=== PATIENT | male | born 1955 | race Two or more races ===

== ENCOUNTER 2018-10-29 13:05 | Inpatient (IN) | payer OTHER ==
[2018-10-29] VITALS (7 sets, daily range): BP systolic 138–157; BP diastolic 60–90
[~2018-10-29] VITALS: Ht 165.1 cm; Wt 77.1 kg
--- NOTE | 2018-10-29 13:09 | NUR ---
ED Nurse Note: Pt presented to ED via ambulance from [facility], pt was bleeding from permacath earlier but bleeding has since stopped, unknown amount of blood lost, pt has a hx of anemia. Pt denies pain, wolof speaking, A&O to self, awake but not answering quesions. Pt has 2 AV shunts on left arm. Presenting with bradycardia.
--- NOTE | 2018-10-29 13:16 | Emergency Room Report ---
History of Present Illness General Chief Complaint: General Complaint Source: EMS Present Illness HPI Patient is sent from a senior living facility. He has bleeding from his permacath in his right chest. He's a dialysis patient. He also has a fistula on his left arm. The EMS company is uncertain how much blood he's lost by the Vascath. Patient has a history of anemia. The patient is unable to answer questions at this time. Unknown when last dialysis was her with dialysis schedule is supposed to be. History of diabetes History of hypertension Allergies: Coded Allergies: No Known Allergies (Unverified , 10/29/18) Patient History Limited by: medical condition Past Medical History: see triage record, old chart reviewed Past Surgical History: other - fistula L upper arm Social History Narrative Reviewed Nursing Documentation: PMH: Agreed; PSxH: Agreed Nursing Documentation-PMH Hx Hypertension: Yes Hx Asthma: No - ESRD Hx Diabetes: Yes Review of Systems All Other Systems: limited Physical Exam Vital Signs Date Time Temp Pulse Resp B/P (MAP) Pulse Ox O2 Delivery O2 Flow Rate FiO2 10/29/18 12:49 96.6 48 20 98 Nasal Cannula 3.0 Sp02 EP Interpretation: reviewed, normal General Appearance: no apparent distress, lethargic, Chronically Ill Head: normocephalic Eyes: bilateral eye PERRL, bilateral eye conjunctivae pale ENT: moist mucus membranes Neck: supple Respiratory: decreased breath sounds, rales, other - vascath R chest with old blood, no active bleeding Cardiovascular #1: bradycardia, edema - Anasarca with 3+ pitting edema lower extremities Cardiovascular #2: 2+ radial (R) Gastrointestinal: normal inspection, normal bowel sounds, non tender, no mass, non-distended Musculoskeletal: back normal, normal range of motion Neurologic: responsive, sensory intact, motor weakness - Diffuse, other - Slow responding and sometimes not responding at all Psychiatric: depressed affect Skin: warm/dry, pallor Procedures Critical Care Time Critical Care Time Total Critical Care Time: 30 min bedside evaluation and treatment excludes procedures (EKG). Reason for critical care: Renal failure, anemia, pulmonary edema, hyperkalemia Possible complications: hypotension, hypertension, IN, shock, arrhythmias, metabolic acidosis, end organ damage, respiratory failure. Interventions: Blood transfusion, arranging for dialysis, treatment of hyperkalemia repeat evaluations Course: Patient presents with bleeding from vascular access site right chest. No active bleeding at this time. The patient is pale. He is bradycardic. Evaluation with profound anemia. Blood set up to be transfused. Discussed with patient risks of transfusion. Chest x-ray with pulmonary edema. Discussed with senior living facility to determine private physician. Discussion with private doctor about need for dialysis. EKG with peaked T waves and potassium high. Calcium chloride and Kayexalate administered. Patient somewhat more responsive. Elevated troponin felt to be secondary to renal failure as opposed to true cardiac injury. Blood begun. Patient transferred to monitored bed. Consultations: nursing staff, EMS, SNF, blood bank, PMD Performed by: Dr. Mclaughlin Tolerated well condition = serious Medical Decision Making Diagnostic Impression: Primary Impression: Profound anemia Qualified Codes: D64.9 - Anemia, unspecified Additional Impressions: Pulmonary edema Qualified Codes: J81.0 - Acute pulmonary edema ESRD (end stage renal disease) on dialysis Elevated troponin Hyperkalemia Anasarca associated with disorder of kidney Encephalopathy ER Course Patient presents with bleeding from vascular access right chest. Differential includes acute bleeding, anemia, renal failure with electrolyte abnormalities, coagulopathy amongst others. Evaluation will be with EKG, chest x-ray and labs. Type and Rh will be sent. The patient is heme-negative from GI tract. EKG with peaked T waves, first-degree AV block and bradycardia. Chest x-ray with pulmonary edema. Labs with profound anemia. Potassium high. End-stage renal disease. Elevated troponin minimally. Elevated BNP Ordered blood. Discussed with patient. K high. Ordered calcium and Kayexelate. + troponin assessed by me to be troponin leak. As bleeding and not felt to be myocardial ischemia, aspirin not given. Discussed with Dr. Trujillo that patient needs dialysis. Admit to telemetry. Patient in no respiratory distress. Occasional coughing episodes. No productive sputum. Laboratory Tests Test 10/29/18 13:15 White Blood Count 4.0 K/UL (4.8-10.8) L Red Blood Count 2.07 M/UL (4.70-6.10) L Hemoglobin 6.5 G/DL (14.2-18.0) *L Hematocrit 20.2 % (42.0-52.0) L Mean Corpuscular Volume 98 FL (80-99) Mean Corpuscular Hemoglobin 31.3 PG (27.0-31.0) H Mean Corpuscular Hemoglobin Concent 32.1 G/DL (32.0-36.0) Red Cell Distribution Width 15.7 % (11.6-14.8) H Platelet Count 179 K/UL (150-450) Mean Platelet Volume 7.2 FL (6.5-10.1) Neutrophils (%) (Auto) % (45.0-75.0) Lymphocytes (%) (Auto) % (20.0-45.0) Monocytes (%) (Auto) % (1.0-10.0) Eosinophils (%) (Auto) % (0.0-3.0) Basophils (%) (Auto) % (0.0-2.0) Differential Total Cells Counted 100 Neutrophils % (Manual) 66 % (45-75) Lymphocytes % (Manual) 17 % (20-45) L Monocytes % (Manual) 10 % (1-10) Eosinophils % (Manual) 6 % (0-3) H Basophils % (Manual) 1 % (0-2) Band Neutrophils 0 % (0-8) Platelet Estimate Adequate Platelet Morphology Normal Hypochromasia 2+ Anisocytosis 1+ Prothrombin Time 12.3 SEC (9.30-11.50) H Prothrombin Time INR 1.2 (0.9-1.1) H PTT 32 SEC (23-33) Sodium Level 135 MMOL/L (136-145) L Potassium Level 6.7 MMOL/L (3.5-5.1) *H Chloride Level 101 MMOL/L (98-107) Carbon Dioxide Level 23 MMOL/L (21-32) Anion Gap 11 mmol/L (5-15) Blood Urea Nitrogen 60 mg/dL (7-18) H Creatinine 7.9 MG/DL (0.55-1.30) H Estimate Glomerular Filtration Rate 6.9 mL/min (>60) Glucose Level 142 MG/DL (74-106) H Calcium Level 8.4 MG/DL (8.5-10.1) L Total Bilirubin 0.5 MG/DL (0.2-1.0) Aspartate Amino Transferase (AST) 23 U/L (15-37) Alanine Aminotransferase (ALT) 22 U/L (12-78) Alkaline Phosphatase 339 U/L (46-116) H Total Creatine Kinase 87 U/L (26-308) Troponin I 0.058 ng/mL (0.000-0.056) Pro-B-Type Natriuretic Peptide 49324 pg/mL (0-125) H Total Protein 7.0 G/DL (6.4-8.2) Albumin 2.8 G/DL (3.4-5.0) L Globulin 4.2 g/dL Albumin/Globulin Ratio 0.7 (1.0-2.7) L Lipase 95 U/L (73-393) EKG Diagnostic Results Rate: bradycardiac - 52 Rhythm: NSR ST Segments: other - 1st degree AV block, slight peaked T waves Rhythm Strip Diag. Results Rhythm: no PVC's, no ectopy, other - ping Chest X-Ray Diagnostic Results Chest X-Ray Diagnostic Results : Chest X-Ray Ordered: Yes # of Views/Limited/Complete: 1 View Indication: Other EP Interpretation: Yes Interpretation: no effusion, no pneumothorax, other - CHF and vas catj Impression: Other Electronically Signed by: Electronically signed by David Mclaughlin MD Last Vital Signs Date Time Temp Pulse Resp B/P (MAP) Pulse Ox O2 Delivery O2 Flow Rate FiO2 10/29/18 16:54 52 10/29/18 16:49 Room Air 10/29/18 16:43 98.0 20 148/60 (89) 98 10/29/18 12:49 3.0 Status: improved Disposition: ADMITTED INPATIENT Condition: Serious David Mclaughlin MD October 29, 2018 13:16
--- NOTE | 2018-10-29 13:24 | NUR ---
ED Nurse Note: Collected blood specimen and then sent to lab.
--- NOTE | 2018-10-29 13:26 | NUR ---
ED Nurse Note: corrosion technician at the bed side for CXR.
[2018-10-29] MEDS ORDERED: DOXAZOSIN MESYLA2 MG ORAL (13:43)
[2018-10-29] MEDS ORDERED: NORVASC5 MG ORAL (13:43)
[2018-10-29] MEDS ORDERED: COREG12.5 MG ORAL (13:43)
[2018-10-29] MEDS ORDERED: RENVELA800 MG ORAL (13:43)
[2018-10-29] MEDS ORDERED: LOSARTAN POTAS100 MG ORAL (13:43)
[2018-10-29 13:44] LABS: HEMATOCRIT 20.2 % (42.0-52.0); MEAN CORPUSCULAR VOLUME 98 FL (80-99); PLATELET COUNT 179 K/UL (150-450); RED BLOOD COUNT 2.07 M/UL (4.70-6.10); RED CELL DISTRIBUTION WIDTH 15.7 % (11.6-14.8)
[2018-10-29 13:45] LABS: HEMOGLOBIN 6.5 G/DL (14.2-18.0)
[2018-10-29 13:54] LABS: INR 1.2 (0.9-1.1)
--- NOTE | 2018-10-29 14:07 | Diagnostic Imaging Report ---
Indication: Pain chest Technique: One view of the chest Comparison: none Findings: There is bilateral interstitial edema. Pleural spaces are grossly clear. The heart is borderline enlarged. There is a right jugular tunneled dialysis catheter. Impression: Hepatomegaly Bilateral interstitial edema
[2018-10-29 14:12] LABS: ALANINE AMINOTRANSFERASE 22 U/L (12-78); ALBUMIN 2.8 G/DL (3.4-5.0); ALBUMIN/GLOBULIN RATIO 0.7 (1.0-2.7); ALKALINE PHOSPHATASE 339 U/L (46-116); ANION GAP 11 mmol/L (5-15); ASPARTATE AMINO TRANSFERASE 23 U/L (15-37); BILIRUBIN,TOTAL 0.5 MG/DL (0.2-1.0); BLOOD UREA NITROGEN 60 mg/dL (7-18); CALCIUM 8.4 MG/DL (8.5-10.1); CARBON DIOXIDE 23 MMOL/L (21-32); CHLORIDE 101 MMOL/L (98-107); CREATINE KINASE 87 U/L (26-308); CREATININE 7.9 MG/DL (0.55-1.30); SODIUM 135 MMOL/L (136-145)
[2018-10-29 14:15] LABS: POTASSIUM 6.7 MMOL/L (3.5-5.1)
[2018-10-29] MEDS ORDERED: Calcium Gluconate 1gm/10ml vial IVP ONE (14:30)
[2018-10-29] MEDS ORDERED: Sodium Polystyrene Sulfonate 15gm Powder ORAL ONE (14:30)
--- NOTE | 2018-10-29 15:06 | History and Physical ---
History of Present Illness General Date patient seen: October 29, 2018 Reason for Hospitalization: General Complaint Present Illness HPI 63 y/o male sent for hyperkalemia, refusing hd and agitation pt also had apparent bleeding from permacath and noted to have drop of h/h Pt. is a poor historian, refusing Iv Allergies: Coded Allergies: No Known Allergies (Unverified , 10/29/18) Medication History Scheduled Amlodipine Besylate (Norvasc), 5 MG ORAL DAILY, (Reported) Carvedilol (Coreg), 12.5 MG ORAL EVERY 12 HOURS, (Reported) Doxazosin Mesylate (Doxazosin Mesylate), 1 MG ORAL DAILY, (Reported) Losartan Potassium (Losartan Potassium), 50 MG ORAL DAILY, (Reported) Sevelamer Carbonate (Renvela), 800 MG ORAL THREE TIMES A DAY, (Reported) Patient History Healthcare decision maker Resuscitation status Advanced Directive on File Past Medical/Surgical History Past Medical/Surgical History: (1) Pulmonary edema (2) Profound anemia (3) ESRD (end stage renal disease) on dialysis Review of Systems Constitutional: Reports: sweats, malaise Eye: Denies: no symptoms, see HPI, eye pain, blurred vision, tearing, double vision, nose pain, nose congestion, acuity changes, discharge, other ENT: Denies: no symptoms, see HPI, ear pain, ear discharge, nose pain, nose congestion, throat pain, throat swelling, mouth pain, hearing loss, nasal discharge, other Respiratory: Reports: orthopnea, shortness of breath Gastrointestinal: Reports: nausea, melena Skin: Denies: no symptoms, see HPI, rash, change in color, change in hair/nails , dryness, lesions, other Psychiatric: Denies: no symptoms, see HPI, prior hx, anxiety, depressed feelings, emotional problems, SI, HI, hallucinations, other Endocrine: Denies: no symptoms, see HPI, excessive sweating, flushing, intolerance to temperature, increased thirst, increased urine, unexplained weight loss, other Hematologic/Lymphatic: Denies: no symptoms, see HPI, anemia, blood clots, easy bleeding, easy bruising, swollen glands, diathesis, other Physical Exam General Appearance: confused HEENT: normocephalic, atraumatic, mucous membranes moist, EOMI Neck: supple Respiratory/Chest: accessory muscle use, crackles/rales Cardiovascular/Chest: normal rate Abdomen: normal bowel sounds Last 24 Hour Vital Signs Date Time Temp Pulse Resp B/P (MAP) Pulse Ox O2 Delivery O2 Flow Rate FiO2 10/29/18 14:01 51 12 Room Air 10/29/18 13:15 97.6 51 12 138/78 Room Air 10/29/18 12:49 96.6 48 20 98 Nasal Cannula 3.0 Laboratory Tests Test 10/29/18 13:15 White Blood Count 4.0 K/UL (4.8-10.8) L Red Blood Count 2.07 M/UL (4.70-6.10) L Hemoglobin 6.5 G/DL (14.2-18.0) *L Hematocrit 20.2 % (42.0-52.0) L Mean Corpuscular Volume 98 FL (80-99) Mean Corpuscular Hemoglobin 31.3 PG (27.0-31.0) H Mean Corpuscular Hemoglobin Concent 32.1 G/DL (32.0-36.0) Red Cell Distribution Width 15.7 % (11.6-14.8) H Platelet Count 179 K/UL (150-450) Mean Platelet Volume 7.2 FL (6.5-10.1) Neutrophils (%) (Auto) % (45.0-75.0) Lymphocytes (%) (Auto) % (20.0-45.0) Monocytes (%) (Auto) % (1.0-10.0) Eosinophils (%) (Auto) % (0.0-3.0) Basophils (%) (Auto) % (0.0-2.0) Differential Total Cells Counted 100 Neutrophils % (Manual) 66 % (45-75) Lymphocytes % (Manual) 17 % (20-45) L Monocytes % (Manual) 10 % (1-10) Eosinophils % (Manual) 6 % (0-3) H Basophils % (Manual) 1 % (0-2) Band Neutrophils 0 % (0-8) Platelet Estimate Adequate Platelet Morphology Normal Hypochromasia 2+ Anisocytosis 1+ Prothrombin Time 12.3 SEC (9.30-11.50) H Prothromb Time International Ratio 1.2 (0.9-1.1) H Activated Partial Thromboplast Time 32 SEC (23-33) Sodium Level 135 MMOL/L (136-145) L Potassium Level 6.7 MMOL/L (3.5-5.1) *H Chloride Level 101 MMOL/L (98-107) Carbon Dioxide Level 23 MMOL/L (21-32) Anion Gap 11 mmol/L (5-15) Blood Urea Nitrogen 60 mg/dL (7-18) H Creatinine 7.9 MG/DL (0.55-1.30) H Estimat Glomerular Filtration Rate 6.9 mL/min (>60) Glucose Level 142 MG/DL (74-106) H Calcium Level 8.4 MG/DL (8.5-10.1) L Total Bilirubin 0.5 MG/DL (0.2-1.0) Aspartate Amino Transf (AST/SGOT) 23 U/L (15-37) Alanine Aminotransferase (ALT/SGPT) 22 U/L (12-78) Alkaline Phosphatase 339 U/L (46-116) H Total Creatine Kinase 87 U/L (26-308) Troponin I 0.058 ng/mL (0.000-0.056) Pro-B-Type Natriuretic Peptide 68253 pg/mL (0-125) H Total Protein 7.0 G/DL (6.4-8.2) Albumin 2.8 G/DL (3.4-5.0) L Globulin 4.2 g/dL Albumin/Globulin Ratio 0.7 (1.0-2.7) L Lipase 95 U/L (73-393) Height (Feet): 5 Height (Inches): 5.00 Weight (Pounds): 170 Assessment/Plan Problem List: (1) Encephalopathy Assessment & Plan: - has psych d/o, await eval, restraints prn ICD Codes: G93.40 - Encephalopathy, unspecified SNOMED: 65419573 (2) Pulmonary edema Assessment & Plan: -try for- 2liter off with hd ICD Codes: J81.1 - Chronic pulmonary edema SNOMED: 39700445 Qualifiers: Qualified Codes: J81.0 - Acute pulmonary edema (3) Profound anemia Assessment & Plan: - gi eval -stool ob -ppi watch h/h -transfuse with hd -epogen ICD Codes: D64.9 - Anemia, unspecified SNOMED: 056848762 Qualifiers: Qualified Codes: D64.9 - Anemia, unspecified (4) Hyperkalemia Assessment & Plan: - low k bath with hd, Kayexalate, repeat h.h ICD Codes: E87.5 - Hyperkalemia SNOMED: 09915251, 815222155, 327183979 (5) ESRD (end stage renal disease) on dialysis Assessment & Plan: - watch volume -resume meds -adjust meds to lower crcl ICD Codes: N18.6 - End stage renal disease; Z99.2 - Dependence on renal dialysis SNOMED: 490322676 Status: not improved Neo Trujillo M.D. October 29, 2018 15:06
--- NOTE | 2018-10-29 15:55 | NUR ---
ED Nurse Note: Pt refused MRSA/VRE/CRE nasal swab.
--- NOTE | 2018-10-29 16:43 | NUR ---
ED Nurse Note: Pt had 2 BM's, small soft/semi-liquid stools.
--- NOTE | 2018-10-29 16:44 | NUR ---
ED Nurse Note: Pt transferred to Tele -, report given to TERESA Palm. PT VSS
--- NOTE | 2018-10-29 17:46 | NUR ---
NURSE NOTES: Pt awake alert,no distress. call light within reach. bed in lowest position, locked. sacral area intact, no active bleeding from right upper chest permacath (gauze covering catheter is saturated w blood), left forearm shunt. bilateral ankle edema. 1uprbc transfusing from er. rfa 20g intact.
--- NOTE | 2018-10-29 17:47 | NUR ---
NURSE NOTES: pt sb with 1degree hb, paged Dr Bautista, awaiting call back. pt asymptomatic. Addendum: 10/29/18 at 1927 by BRITTNY WEAVER RN DR BAUTISTA CALLED BACK PT IS AWARE THAT THERE IS NO ACTIVE BLEEDING ON RIGHT UPPER CHEST PERMACATH BUT THE GAUZE COVERING END OF CATHETER IS SATURATED W BLOOD. NO NEW ORDER. ALSO AWARE OF K LEVEL, PT DUE FOR HD TONIGHT.
--- NOTE | 2018-10-29 17:48 | NUR ---
NURSE NOTES: called [facility] for hd today to inform dialysis nurse
--- NOTE | 2018-10-29 19:20 | NUR ---
HAND-OFF: Report given to PAUL MOORE.
--- NOTE | 2018-10-29 19:25 | NUR ---
NURSE NOTES: Received report from TERESA Palm. Patient in bed awake showing no signs of acute distress. Respiration even and non labored. No Sob noted. IV patent and intact. Bed in lowest position. Bed alarm on, and wheels locked. Call light within reach. All needs attended and met. Will continue plan of care.
--- NOTE | 2018-10-29 19:45 | NUR ---
NURSE NOTES: Pt. refused to have the biotechnologist on him. Explained risk, benefits, and hospital protocol. AOx4. Pt. still refused. Pt. refused hemodialysis. Dr. perry made aware. New orders provided. Noted and carried out.
[2018-10-29] MEDS ORDERED: Sodium Polystyrene Sulfonate 15gm Powder ORAL SCH (20:00)
[2018-10-29] MEDS: Carvedilol 12.5mg tab ORAL SCH (20:41)
[2018-10-29] MEDS: Epoetin Alfa(ESRD on dialysis)10,000 unit/ml vial SUBQ SCH (20:58)
--- NOTE | 2018-10-30 01:46 | NUR ---
NURSE NOTES: Pt. is complaining of pain on right upper chest area. Called and left a message to Dr. Trujillo. Awaiting call back. BP 162/83, HR 55.
[2018-10-30 02:21] LABS: HEMOGLOBIN 7.7 G/DL (14.2-18.0); MEAN CORPUSCULAR VOLUME 95 FL (80-99); PLATELET COUNT 195 K/UL (150-450); RED BLOOD COUNT 2.42 M/UL (4.70-6.10); RED CELL DISTRIBUTION WIDTH 15.5 % (11.6-14.8); WHITE BLOOD COUNT 4.7 K/UL (4.8-10.8)
[2018-10-30 02:49] LABS: ANION GAP 10 mmol/L (5-15); BLOOD UREA NITROGEN 67 mg/dL (7-18); CALCIUM 8.6 MG/DL (8.5-10.1); CARBON DIOXIDE 24 MMOL/L (21-32); CHLORIDE 102 MMOL/L (98-107); CREATININE 8.6 MG/DL (0.55-1.30); SODIUM 136 MMOL/L (136-145)
[2018-10-30 02:51] LABS: POTASSIUM 6.7 MMOL/L (3.5-5.1)
--- NOTE | 2018-10-30 07:35 | NUR ---
HAND-OFF: Report given to TERESA Leigh.
--- NOTE | 2018-10-30 07:38 | NUR ---
NURSE NOTES: Received report from Adelita/RN, Patient is awake, All dressed up, eating breakfast at bedside. No acute distress noted. Patient refused heart monitor at this time. Bed in low position, Call light within reach. Will continue plan of care.
[2018-10-30 08:00] VITALS: BP 186/86
[2018-10-30] MEDS: Losartan 50mg tab ORAL SCH (08:43)
[2018-10-30] MEDS: Carvedilol 12.5mg tab ORAL SCH ×2 (08:44→21:32)
--- NOTE | 2018-10-30 10:00 | NUR ---
NURSE NOTES: Patient refused to put Heart monitor.
--- NOTE | 2018-10-30 10:10 | General Progress Note ---
Assessment/Plan Problem List: (1) ESRD (end stage renal disease) on dialysis ICD Codes: N18.6 - End stage renal disease; Z99.2 - Dependence on renal dialysis SNOMED: 796981942 (2) Profound anemia ICD Codes: D64.9 - Anemia, unspecified SNOMED: 999058417 Qualifiers: Qualified Codes: D64.9 - Anemia, unspecified Assessment/Plan: anemia from combination of ESRD and perma cath bleeding no active GIB check stool ob GI procedures if needed monitor H&H Subjective ROS Limited/Unobtainable: Yes Allergies: Coded Allergies: No Known Allergies (Unverified , 10/29/18) Objective Last 24 Hour Vital Signs Date Time Temp Pulse Resp B/P (MAP) Pulse Ox O2 Delivery O2 Flow Rate FiO2 10/30/18 08:44 57 186/86 10/30/18 08:44 57 186/86 10/30/18 08:43 186/86 10/30/18 08:00 97.8 57 18 186/86 (119) 100 10/30/18 01:38 55 10/29/18 21:00 Room Air 10/29/18 20:41 53 157/85 10/29/18 20:00 52 18 157/85 (109) 97 10/29/18 16:54 52 10/29/18 16:49 Room Air 10/29/18 16:43 98.0 54 20 148/60 (89) 98 10/29/18 16:40 97.6 80 18 153/69 100 Room Air 10/29/18 15:55 97.6 80 18 153/69 100 Room Air 10/29/18 15:45 58 12 146/62 97 Room Air 10/29/18 15:40 97.6 69 12 141/66 100 Room Air 10/29/18 15:40 97.6 86 13 141/66 100 Room Air 10/29/18 15:35 97.6 63 12 10/29/18 14:15 97.4 54 12 145/90 100 Room Air 10/29/18 14:01 51 12 Room Air 10/29/18 13:15 97.6 51 12 138/78 Room Air 10/29/18 12:49 96.6 48 20 98 Nasal Cannula 3.0 Intake and Output 10/29/18 10/30/18 19:00 07:00 Intake Total 200 ml 240 ml Balance 200 ml 240 ml Intake Oral 200 ml 240 ml # Voids 1 # Bowel Movements 1 Laboratory Tests 10/29/18 13:15: White Blood Count 4.0L, Red Blood Count 2.07L, Hemoglobin 6.5*L, Hematocrit 20.2L, Mean Corpuscular Volume 98, Mean Corpuscular Hemoglobin 31.3H, Mean Corpuscular Hemoglobin Concent 32.1, Red Cell Distribution Width 15.7H, Platelet Count 179, Mean Platelet Volume 7.2, Neutrophils (%) (Auto) , Lymphocytes (%) (Auto) , Monocytes (%) (Auto) , Eosinophils (%) (Auto) , Basophils (%) (Auto) , Differential Total Cells Counted 100, Neutrophils % ( Manual) 66, Lymphocytes % (Manual) 17L, Monocytes % (Manual) 10, Eosinophils % ( Manual) 6H, Basophils % (Manual) 1, Band Neutrophils 0, Platelet Estimate Adequate, Platelet Morphology Normal, Hypochromasia 2+, Anisocytosis 1+, Prothrombin Time 12.3H, Prothromb Time International Ratio 1.2H, Activated Partial Thromboplast Time 32, Sodium Level 135L, Potassium Level 6.7*H, Chloride Level 101, Carbon Dioxide Level 23, Anion Gap 11, Blood Urea Nitrogen 60H, Creatinine 7.9H, Estimat Glomerular Filtration Rate 6.9, Glucose Level 142H , Calcium Level 8.4L, Total Bilirubin 0.5, Aspartate Amino Transf (AST/SGOT) 23 , Alanine Aminotransferase (ALT/SGPT) 22, Alkaline Phosphatase 339H, Total Creatine Kinase 87, Troponin I 0.058H, Pro-B-Type Natriuretic Peptide 37284L, Total Protein 7.0, Albumin 2.8L, Globulin 4.2, Albumin/Globulin Ratio 0.7L, Lipase 95 10/30/18 02:05: White Blood Count 4.7L, Red Blood Count 2.42L, Hemoglobin 7.7L, Hematocrit 23.0L , Mean Corpuscular Volume 95, Mean Corpuscular Hemoglobin 31.9H, Mean Corpuscular Hemoglobin Concent 33.6, Red Cell Distribution Width 15.5H, Platelet Count 195, Mean Platelet Volume 6.3L, Neutrophils (%) (Auto) , Lymphocytes (%) (Auto) , Monocytes (%) (Auto) , Eosinophils (%) (Auto) , Basophils (%) (Auto) , Differential Total Cells Counted 100, Neutrophils % ( Manual) 72, Lymphocytes % (Manual) 9L, Monocytes % (Manual) 15H, Eosinophils % ( Manual) 4H, Basophils % (Manual) 0, Band Neutrophils 0, Platelet Estimate Adequate, Platelet Morphology Normal, Anisocytosis 1+, Sodium Level 136, Potassium Level 6.7*H, Chloride Level 102, Carbon Dioxide Level 24, Anion Gap 10 , Blood Urea Nitrogen 67H, Creatinine 8.6H, Estimat Glomerular Filtration Rate 6.3, Glucose Level 115H, Calcium Level 8.6, Magnesium Level 2.4, Thyroid Stimulating Hormone (TSH) 22.825H Height (Feet): 5 Height (Inches): 5.00 Weight (Pounds): 170 General Appearance: alert EENT: normal ENT inspection Neck: supple Cardiovascular: normal rate Respiratory/Chest: decreased breath sounds Abdomen: normal bowel sounds, non tender, soft Extremities: non-tender Shantanu Burch MD October 30, 2018 10:10
[2018-10-30 12:00] VITALS: BP 192/82
--- NOTE | 2018-10-30 14:34 | NUR ---
CASE MANAGEMENT: REVIEW 63Y/M PAUL FROM [facility] CC: BLEEDING FROM PERMA-CATH SI: ESRD ON HD . ANEMIA T 96.6 HR 48 RR 20 BP 145/90 SAT 98% NC/3L WBC 4.0 H/H 6.5/20.2 NA 135 K 6.7 BUN 60 CR 7.9 IS: KAYEXALATE CALCIUM GLUCONATE IV X1 1 UNIT PRBC'S PATIENT ADMITTED TO TELEMETRY UNIT 10/29/2018 DCP: PATIENT IS FROM [facility]
--- NOTE | 2018-10-30 15:30 | NUR ---
Patient blood pressure is 187/95, Dr. Trujillo is aware and placed an order and carried out.
[2018-10-30 16:00] VITALS: BP 148/91
--- NOTE | 2018-10-30 18:05 | Nephrology Progress Note ---
Assessment/Plan Problem List: (1) Anemia Assessment: - GI eval noted -monitor h/h -s/p epogen (2) Encephalopathy Assessment: - has psych d/o, await eval, restraints prn (3) Pulmonary edema Assessment: - s/p - 2liter off with hd (4) Hyperkalemia Assessment: - treated with hd, low K bath (5) ESRD (end stage renal disease) on dialysis Assessment: - s/p hd, adjust meds, watch volume status Subjective ROS Limited/Unobtainable: Yes Subjective pt. seen and examined d/w rn s/p hd after refusing yesterday needs restraint, confused bp occ high psych eval called gi eval appreciated, no apparent blood loss. Objective Objective Last 24 Hour Vital Signs Date Time Temp Pulse Resp B/P (MAP) Pulse Ox O2 Delivery O2 Flow Rate FiO2 10/30/18 16:37 192/82 10/30/18 16:00 98.0 71 20 148/91 (110) 99 10/30/18 12:00 98.2 54 18 192/82 (118) 98 10/30/18 09:00 Room Air 10/30/18 08:44 57 186/86 10/30/18 08:44 57 186/86 10/30/18 08:43 186/86 10/30/18 08:00 97.8 57 18 186/86 (119) 100 10/30/18 01:38 55 10/29/18 21:00 Room Air 10/29/18 20:41 53 157/85 10/29/18 20:00 52 18 157/85 (109) 97 Intake and Output 10/29/18 10/30/18 19:00 07:00 Intake Total 200 ml 240 ml Balance 200 ml 240 ml Intake Oral 200 ml 240 ml # Voids 1 # Bowel Movements 1 Laboratory Tests 10/30/18 02:05: White Blood Count 4.7L, Red Blood Count 2.42L, Hemoglobin 7.7L, Hematocrit 23.0L , Mean Corpuscular Volume 95, Mean Corpuscular Hemoglobin 31.9H, Mean Corpuscular Hemoglobin Concent 33.6, Red Cell Distribution Width 15.5H, Platelet Count 195, Mean Platelet Volume 6.3L, Neutrophils (%) (Auto) , Lymphocytes (%) (Auto) , Monocytes (%) (Auto) , Eosinophils (%) (Auto) , Basophils (%) (Auto) , Differential Total Cells Counted 100, Neutrophils % ( Manual) 72, Lymphocytes % (Manual) 9L, Monocytes % (Manual) 15H, Eosinophils % ( Manual) 4H, Basophils % (Manual) 0, Band Neutrophils 0, Platelet Estimate Adequate, Platelet Morphology Normal, Anisocytosis 1+, Sodium Level 136, Potassium Level 6.7*H, Chloride Level 102, Carbon Dioxide Level 24, Anion Gap 10 , Blood Urea Nitrogen 67H, Creatinine 8.6H, Estimat Glomerular Filtration Rate 6.3, Glucose Level 115H, Calcium Level 8.6, Magnesium Level 2.4, Thyroid Stimulating Hormone (TSH) 22.825H Height (Feet): 5 Height (Inches): 5.00 Weight (Pounds): 170 General Appearance: confused Neck: non-tender, supple Respiratory/Chest: decreased breath sounds Abdomen: non tender, soft Neurologic: laboratory sample carrier II-XII grossly normal, no Babinski Neo Trujillo M.D. October 30, 2018 18:05
[2018-10-30] MEDS ORDERED: LORazepam Inj 2mg/ml 1ml IM PRN (18:15)
--- NOTE | 2018-10-30 19:30 | NUR ---
NURSE NOTES: received pt from day shift nurse. pt restrained at this time for safety, pt trying to pull the PermaCath dialysis access. CMS intact. pt in bed no s/s of distress.safety precaution in place. bed locked and lowest position, call light within reach. will make rounds hourly to ensure pt's safety.
[2018-10-30 20:00] VITALS: BP 188/93
--- NOTE | 2018-10-30 20:00 | NUR ---
HAND-OFF: Report given to Rebecca/RN, No acute distress. Endorsed plan of care.
[2018-10-31] VITALS (7 sets, daily range): BP systolic 152–199; BP diastolic 85–99
--- NOTE | 2018-10-31 | NUR ---
NURSE NOTES: pt trying to get out of bed, trying to take off restraints. restraints in place, CMS intact. safety precaution in place. will continue to monitor.
--- NOTE | 2018-10-31 06:44 | NUR ---
NURSE NOTES: pt remains in stable condition. no change of condition during my shift. restraints in place, CMS intact. pt still needs restraints, he is trying to pull IV and PermCath. safety precautions in place. all needs met during my shift, will endorse care to incoming nurse.
--- NOTE | 2018-10-31 06:48 | NUR ---
NURSE NOTES: radiation control health physicist unable to draw blood. another phlebotomy will come later and try.
--- NOTE | 2018-10-31 07:26 | NUR ---
HAND-OFF: Report given to TERESA Lyon.
--- NOTE | 2018-10-31 07:26 | NUR ---
NURSE NOTES: I received the patient awake and resting in bed. Soft wrist restraints applied to the patient. Patient does not display any signs of distress or SOB. Patient alert and verbalizing needs. I will continue to monitor the patient and implement care.
[2018-10-31] MEDS: Carvedilol 12.5mg tab ORAL SCH ×2 (09:05→21:00)
[2018-10-31] MEDS: Losartan 50mg tab ORAL SCH (09:06)
[2018-10-31 09:11] LABS: EOSINOPHILS % (AUTO) 5.1 % (0.0-3.0); HEMATOCRIT 24.5 % (42.0-52.0); LYMPHOCYTES % (AUTO) 14.3 % (20.0-45.0); MEAN CORPUSCULAR VOLUME 95 FL (80-99); MONOCYTES % (AUTO) 11.8 % (1.0-10.0); NEUTROPHILS % (AUTO) 66.7 % (45.0-75.0); PLATELET COUNT 185 K/UL (150-450); RED BLOOD COUNT 2.57 M/UL (4.70-6.10); WHITE BLOOD COUNT 5.1 K/UL (4.8-10.8)
--- NOTE | 2018-10-31 09:33 | General Progress Note ---
Assessment/Plan Problem List: (1) ESRD (end stage renal disease) on dialysis ICD Codes: N18.6 - End stage renal disease; Z99.2 - Dependence on renal dialysis SNOMED: 874178800 (2) Profound anemia ICD Codes: D64.9 - Anemia, unspecified SNOMED: 475182681 Qualifiers: Qualified Codes: D64.9 - Anemia, unspecified Assessment/Plan: anemia from combination of ESRD and Perma cath bleeding no active GIB check stool ob GI procedures if needed monitor H&H HD per nephrology Subjective ROS Limited/Unobtainable: No Allergies: Coded Allergies: No Known Allergies (Unverified , 10/29/18) Subjective confused Objective Last 24 Hour Vital Signs Date Time Temp Pulse Resp B/P (MAP) Pulse Ox O2 Delivery O2 Flow Rate FiO2 10/31/18 09:06 199/93 10/31/18 09:05 62 199/93 10/31/18 09:05 62 199/93 10/31/18 08:00 97.8 62 20 199/93 (128) 10/31/18 04:00 60 10/31/18 04:00 97.8 63 18 189/87 (121) 96 10/31/18 00:00 97.2 59 15 152/91 (111) 97 10/31/18 00:00 59 10/30/18 21:32 63 188/93 10/30/18 21:00 Room Air 10/30/18 20:00 98.0 63 16 188/93 (124) 99 10/30/18 20:00 62 10/30/18 16:37 192/82 10/30/18 16:00 98.0 71 20 148/91 (110) 99 10/30/18 12:00 98.2 54 18 192/82 (118) 98 Intake and Output 10/30/18 10/31/18 19:00 07:00 Intake Total 600 ml Output Total 2000 ml Balance -1400 ml Intake Oral 600 ml Output Hemodialysis UF 2000 ml Laboratory Tests 10/31/18 08:45: White Blood Count 5.1, Red Blood Count 2.57L, Hemoglobin 8.0L, Hematocrit 24.5L , Mean Corpuscular Volume 95, Mean Corpuscular Hemoglobin 30.9, Mean Corpuscular Hemoglobin Concent 32.5, Red Cell Distribution Width 15.0H, Platelet Count 185, Mean Platelet Volume 6.7, Neutrophils (%) (Auto) 66.7, Lymphocytes (%) (Auto) 14.3L, Monocytes (%) (Auto) 11.8H, Eosinophils (%) (Auto ) 5.1H, Basophils (%) (Auto) 2.0 Height (Feet): 5 Height (Inches): 5.00 Weight (Pounds): 170 General Appearance: lethargic EENT: normal ENT inspection Neck: supple Cardiovascular: normal rate Respiratory/Chest: decreased breath sounds Abdomen: normal bowel sounds, non tender, soft Extremities: non-tender Shantanu Burch MD October 31, 2018 09:33
--- NOTE | 2018-10-31 11:08 | Physician Query ---
--------- THIS DOCUMENT IS A PERMANENT PART OF THE MEDICAL RECORD --------- PLEASE COMPLETE DOCUMENT BEFORE SIGNING Amaury Appiah Date: Supervisor Model Making/CDS Name: Supervisor Model Making / CDS Phone # Exercise your independent professional judgment when responding to query. Question asked do not imply a particular answer is desired/expected. Clinical Documentation States: "Altered Mental Status / Confusion / ALOC" documented in Clinical Findings Show: Please indicate the nature and chronicity of the condition below: [] Metabolic Encephalopathy [] Toxic Encephalopathy [] Toxic - Metabolic Encephalopathy [] Progressive Encephalopathy [] Encephalopathy, Other [] Other: [] Not Applicable Severity [] Acute [] Chronic [] Acute on Chronic [] Unable to determine Condition Present on Admission: [] Yes [] No []Clinically Undeterminable Please also document in your Progress Notes and/or Discharge Summary and indicate if the condition was present on admission.
--- NOTE | 2018-10-31 13:10 | NUR ---
NURSE NOTES: I attempted to feed the patient lunch, but he refused. The SALES RELATIONSHIP MANAGER also asked the patient if he wanted to eat and he said no. Patient resting in bed and soft wrist restraints on the patient. Patient does not display any signs of distress or SOB.
--- NOTE | 2018-10-31 15:52 | NUR ---
HAND-OFF: Report given to TERESA López.
--- NOTE | 2018-10-31 16:47 | Nephrology Progress Note ---
Assessment/Plan Problem List: (1) Anemia Assessment: - GI eval noted -monitor h/h -s/p epogen (2) Encephalopathy Assessment: - has psych d/o, await eval, restraints prn (3) Pulmonary edema Assessment: - s/p - 2liter off with hd (4) Hyperkalemia Assessment: - treated with hd, low K bath (5) ESRD (end stage renal disease) on dialysis Assessment: - s/p hd, adjust meds, watch volume status (6) Hypothyroid Assessment: - extremely elevated tsh, will start synthroid and watch Subjective ROS Limited/Unobtainable: Yes Constitutional: Reports: malaise Subjective pt. seen and examined d/w rn less agitated vascular called for permacath removal needs restraint, confused bp occ high psych eval called gi eval appreciated, no apparent blood loss. Objective Objective Last 24 Hour Vital Signs Date Time Temp Pulse Resp B/P (MAP) Pulse Ox O2 Delivery O2 Flow Rate FiO2 10/31/18 16:00 98.7 56 20 183/85 (117) 10/31/18 11:57 59 10/31/18 11:52 97.6 57 20 184/99 (127) 10/31/18 10:45 59 183/96 (125) 10/31/18 09:06 199/93 10/31/18 09:05 62 199/93 10/31/18 09:05 62 199/93 10/31/18 09:00 Room Air 10/31/18 08:03 61 10/31/18 08:00 97.8 62 20 199/93 (128) 10/31/18 04:00 60 10/31/18 04:00 97.8 63 18 189/87 (121) 96 10/31/18 00:00 97.2 59 15 152/91 (111) 97 10/31/18 00:00 59 10/30/18 21:32 63 188/93 10/30/18 21:00 Room Air 10/30/18 20:00 98.0 63 16 188/93 (124) 99 10/30/18 20:00 62 Intake and Output 10/30/18 10/31/18 19:00 07:00 Intake Total 600 ml Output Total 2000 ml Balance -1400 ml Intake Oral 600 ml Output Hemodialysis UF 2000 ml Laboratory Tests 10/31/18 08:45: White Blood Count 5.1, Red Blood Count 2.57L, Hemoglobin 8.0L, Hematocrit 24.5L , Mean Corpuscular Volume 95, Mean Corpuscular Hemoglobin 30.9, Mean Corpuscular Hemoglobin Concent 32.5, Red Cell Distribution Width 15.0H, Platelet Count 185, Mean Platelet Volume 6.7, Neutrophils (%) (Auto) 66.7, Lymphocytes (%) (Auto) 14.3L, Monocytes (%) (Auto) 11.8H, Eosinophils (%) (Auto ) 5.1H, Basophils (%) (Auto) 2.0 Height (Feet): 5 Height (Inches): 5.00 Weight (Pounds): 170 Neo Trujillo M.D. October 31, 2018 16:47
--- NOTE | 2018-10-31 18:29 | NUR ---
NURSE NOTES: [facility] Nephrology contacted about patient's dialysis order for 11/01/18.
--- NOTE | 2018-10-31 19:07 | NUR ---
HAND-OFF: Report given to Marcellus Vail RN.
--- NOTE | 2018-10-31 19:30 | NUR ---
NURSE NOTES: received pt in stable condition,restraints in place, CMS intact. no acute distress noted. safety precautions in place. bed locked and call light within reach. will round pt hourly to ensure pt's safety.
[2018-11-01] VITALS: BP 180/88
--- NOTE | 2018-11-01 02:00 | NUR ---
NURSE NOTES: pt keeps taking off restraints, education provided not willing to follow commands. no change in condition. will continue to monitor
[2018-11-01 04:00] VITALS: BP 182/96
[2018-11-01 06:28] LABS: HEMATOCRIT 23.7 % (42.0-52.0); HEMOGLOBIN 7.8 G/DL (14.2-18.0); MEAN CORPUSCULAR VOLUME 96 FL (80-99); PLATELET COUNT 186 K/UL (150-450); RED BLOOD COUNT 2.48 M/UL (4.70-6.10); RED CELL DISTRIBUTION WIDTH 14.7 % (11.6-14.8); WHITE BLOOD COUNT 4.9 K/UL (4.8-10.8)
[2018-11-01 06:40] LABS: ANION GAP 11 mmol/L (5-15); BLOOD UREA NITROGEN 65 mg/dL (7-18); CALCIUM 8.3 MG/DL (8.5-10.1); CARBON DIOXIDE 23 MMOL/L (21-32); CHLORIDE 104 MMOL/L (98-107); CREATININE 8.7 MG/DL (0.55-1.30); SODIUM 139 MMOL/L (136-145)
[2018-11-01 06:43] LABS: POTASSIUM 6.1 MMOL/L (3.5-5.1)
--- NOTE | 2018-11-01 06:50 | NUR ---
NURSE NOTES: pt remains in stable condition. pt trying to take off restrains several times during my shift. no change of condition during my shift. safety precautions in place. all needs met during my shift, will endorse care to incoming nurse.
--- NOTE | 2018-11-01 07:22 | General Progress Note ---
Assessment/Plan Status: not improved Assessment/Plan: Assessment - Anemia - ESRD/HD - perm-a-cath bleeding Recommendations - Await stool OB - po as tolerated - HD - monitor H&H - Outpatient EGD/Colon if/when patient agreeable Subjective Allergies: Coded Allergies: No Known Allergies (Unverified , 10/29/18) Subjective Above noted no abdominal complaints says has never had a colonoscopy or endoscopy advised to have outpatient EGD/Colon for eval of anemia and colon CA screening declined, says feels fine understands indications and risk of GI malignancy Objective Last 24 Hour Vital Signs Date Time Temp Pulse Resp B/P (MAP) Pulse Ox O2 Delivery O2 Flow Rate FiO2 11/01/18 04:00 98.9 65 18 182/96 (124) 93 11/01/18 04:00 57 11/01/18 00:00 57 11/01/18 00:00 99.9 60 18 180/88 (118) 96 10/31/18 21:00 Room Air 10/31/18 21:00 58 177/86 10/31/18 20:00 99.9 58 18 177/86 (116) 96 10/31/18 20:00 57 10/31/18 16:00 98.7 56 20 183/85 (117) 10/31/18 15:41 57 10/31/18 11:57 59 10/31/18 11:52 97.6 57 20 184/99 (127) 10/31/18 10:45 59 183/96 (125) 10/31/18 09:06 199/93 10/31/18 09:05 62 199/93 10/31/18 09:05 62 199/93 10/31/18 09:00 Room Air 10/31/18 08:03 61 10/31/18 08:00 97.8 62 20 199/93 (128) Intake and Output 10/31/18 11/01/18 19:00 07:00 Intake Total 240 ml 300 ml Balance 240 ml 300 ml Intake Oral 240 ml 300 ml # Voids 2 # Bowel Movements 1 Laboratory Tests 10/31/18 08:45: White Blood Count 5.1, Red Blood Count 2.57L, Hemoglobin 8.0L, Hematocrit 24.5L , Mean Corpuscular Volume 95, Mean Corpuscular Hemoglobin 30.9, Mean Corpuscular Hemoglobin Concent 32.5, Red Cell Distribution Width 15.0H, Platelet Count 185, Mean Platelet Volume 6.7, Neutrophils (%) (Auto) 66.7, Lymphocytes (%) (Auto) 14.3L, Monocytes (%) (Auto) 11.8H, Eosinophils (%) (Auto ) 5.1H, Basophils (%) (Auto) 2.0 11/01/18 05:40: White Blood Count 4.9, Red Blood Count 2.48L, Hemoglobin 7.8L, Hematocrit 23.7L , Mean Corpuscular Volume 96, Mean Corpuscular Hemoglobin 31.6H, Mean Corpuscular Hemoglobin Concent 33.1, Red Cell Distribution Width 14.7, Platelet Count 186, Mean Platelet Volume 7.0, Neutrophils (%) (Auto) , Lymphocytes (%) ( Auto) , Monocytes (%) (Auto) , Eosinophils (%) (Auto) , Basophils (%) (Auto) , Neutrophils % (Manual) [Pending], Lymphocytes % (Manual) [Pending], Platelet Estimate [Pending], Platelet Morphology [Pending], Sodium Level 139, Potassium Level 6.1*H, Chloride Level 104, Carbon Dioxide Level 23, Anion Gap 11, Blood Urea Nitrogen 65H, Creatinine 8.7H, Estimat Glomerular Filtration Rate 6.2, Glucose Level 108H, Calcium Level 8.3L, Magnesium Level 2.4 Height (Feet): 5 Height (Inches): 5.00 Weight (Pounds): 170 Objective WDWN L man NCAT supple CTA RRR Abd soft Ext no edema Verena Lieberman MD November 01, 2018 07:22
--- NOTE | 2018-11-01 07:35 | NUR ---
NURSE NOTES: Received report from TERESA Fernandez. Patient in bed awake showing no signs of acute distress. Respiration even and non labored. No Sob noted. IV patent and intact. Bed in lowest position. Bed alarm on, and wheels locked. Call light within reach. Discussed with patient the need of soft wrist restraints and for assistance eating breakfast. Patient refused breakfast. Will continue plan of care.
--- NOTE | 2018-11-01 07:48 | NUR ---
HAND-OFF: Report given to TERESA Saenz.
[2018-11-01 07:59] VITALS: BP 181/100
[2018-11-01] MEDS: Losartan 50mg tab ORAL SCH ×2 (09:00→12:47)
[2018-11-01] MEDS: Carvedilol 12.5mg tab ORAL SCH ×3 (09:00→21:00)
--- NOTE | 2018-11-01 09:02 | Endoscopy Procedure Note ---
Endoscopy Procedure Note General Indication for Procedure: GI Bleed Procedures Performed: EGD, colonoscopy Operative Findings/Diagnosis: gastritis, hemorrhoid, s/p bx Specimen: yes Pt Tolerated Procedure Well: Yes Estimated Blood Loss: none Anesthesia Anesthesiologist: Radha Anesthesia: MAC Medications Medication Given: see anesthesia record Inserted Devices Implant(s) used?: No Quality Quality of Bowel Preparation: Excellent Did scope reach the cecum?: Yes GI Core Measures 50 yrs or older w/o bx or poly: Not Applicable 10yrs. F/U not recommended: Not Applicable If not recommended, why?: Verena Lieberman MD November 01, 2018 09:02
--- NOTE | 2018-11-01 09:04 | Brief Operative Note ---
Immediate Post Operative Note Operative Note Chief Complaint: GIB Pre-op Diagnosis: GIB Procedure: esophagogastroduodenoscopybx, colon bx Post-op Diagnosis: gastritis, rhoids Surgeon: marisela Anesthesiologist: Isrrael Anesthesia: MAC Specimen: yes Complications: none Condition: stable Fluids: recorded Estimated Blood Loss: none Drains: none Implant(s) used?: No Verena Lieberman MD November 01, 2018 09:04
--- NOTE | 2018-11-01 10:10 | NUR ---
NURSE NOTES: Paged Dr. Trujillo's office, , about hgb 7.8. Awaiting call back from doctor. Addendum: 11/01/18 at 1056 by Dany Cárdenas RN @10:55am: Spoke with Dr. Trujillo about elevate SBP 184, Potassium 6.1, and hgb 7.8. Dr. Trujillo is aware and no new orders at this time.
--- NOTE | 2018-11-01 10:29 | NUR ---
*-* INSURANCE *-* ALL CLINICALS AND REVIEWS HAVE BEEN FAXED TO: AMITA HARRINGTON F:[phone]
[2018-11-01 12:00] VITALS: BP 193/102
--- NOTE | 2018-11-01 13:02 | NUR ---
CASE MANAGEMENT:REVIEW 10/31/18 SI: ANEMIA. ENCEPHALOPATHY ESRD ON HD 97.8 63 18 189/87 96% ON RA H/H-8.0/24.5 IS: SYNTHROID PO QD CLONIDINE PATCH QWEEK NORVASC PO QD COZAAR PO QD RENVELA PO TID ESRD SQ MWF COREG PO Q12 TELEMETRY STATUS 11/01/18 SI: ANEMIA. ENCEPHALOPATHY ESRD ON HD 98.0 77 20 193/102 98% ON RA H/H-7.8/23.7 K+6.1 BUN+65 CR+8.7 IS: SYNTHROID PO QD CLONIDINE PATCH QWEEK NORVASC PO QD COZAAR PO QD RENVELA PO TID ESRD SQ MWF COREG PO Q12 : TELEMETRY STATUS PLAN: SCHEDULED FOR DIALYSIS FOR TODAY Addendum: 11/01/18 at 1309 by ROBBIN TERESA LVN LVN DCP: FROM STEVEN FAUSTIN
--- NOTE | 2018-11-01 13:07 | NUR ---
NURSE NOTES: Spoke with Dr. Boyd about right portacath bleeding after patient ate lunch. Plan for procedure to remove right catheter on 11/02/18. Orders entered.
--- NOTE | 2018-11-01 15:00 | NUR ---
NURSE NOTES: Patient left to IR for removal of Portacath.
[2018-11-01] MEDS ORDERED: Haloperidol 5mg/ml Inj IM PRN (15:45)
[2018-11-01] MEDS ORDERED: Lidocaine 1% Plain 30 ml INJ SCH (15:45)
--- NOTE | 2018-11-01 16:00 | NUR ---
CHARGE NURSE NOTES: Pt taken down to [facility]. Rad. for removal of bleeding tunnel catheter. Removal done by Dr Boyd. Pt brought back to floor where it was discovered that the site was still bleeding, direct pressure held for 10 minutes by master fire control technician and CN. After bleeding had stopped a pressure dressing was applied over the jugular site and a sterile 4x4 placed over the tunnel site.
--- NOTE | 2018-11-01 16:15 | NUR ---
NURSE NOTES: Patient arrived from IR with Alex, charger tester. Site was still bleeding. Direct pressure was applied for 20 minutes. Pressure dressing was applied.
--- NOTE | 2018-11-01 18:00 | NUR ---
NURSE NOTES: Right upper chest has pressure dressing that is dry and intact.
[2018-11-01 18:58] VITALS: BP 153/76
--- NOTE | 2018-11-01 19:32 | NUR ---
HAND-OFF: Report given to TERESA Jo. Pressure dressing is dry and intact.
--- NOTE | 2018-11-01 19:35 | NUR ---
NURSE NOTES: Received report from TERESA Saenz. Patient in bed awake showing no signs of acute distress. Respiration even and non labored. No Sob noted. IV patent and intact. Bed in lowest position. Bed alarm on, and wheels locked. Call light within reach. Pt. refused to have the traffic monitor specialist on and still showing signs of resistance for care, explained risk and benefits, pt. remained resistive for care and combative. No bleeding on post surgical site on right upper chest noted, dressing intact. Will continue plan of care.
[2018-11-01 20:00] VITALS: BP 152/68
[2018-11-01] MEDS: Epoetin Alfa(ESRD on dialysis)10,000 unit/ml vial SUBQ SCH (21:00)
--- NOTE | 2018-11-01 21:26 | Nephrology Progress Note ---
Assessment/Plan Problem List: (1) Encephalopathy Assessment: - has psych d/o, await eval, restraints prn (2) Pulmonary edema Assessment: -UF with hd this am, comfortable (3) Profound anemia Assessment: -sec to ckd + blood loss from hd catheter -stool ob pending -ppi -watch h/h -s/p epogen (4) Hyperkalemia Assessment: - low k bath with hd, Kayexalate, repeat h.h (5) ESRD (end stage renal disease) on dialysis Assessment: - watch volume -resume meds -adjust meds to lower crcl -perma-cath removed Subjective ROS Limited/Unobtainable: Yes Constitutional: Reports: malaise Subjective pt. seen and examined d/w rn s/p hd with good flow with fistula less agitated permacath removed for persistent bleeding needs restraint, confused gi eval appreciated, no apparent blood loss. Objective Objective Last 24 Hour Vital Signs Date Time Temp Pulse Resp B/P (MAP) Pulse Ox O2 Delivery O2 Flow Rate FiO2 11/01/18 18:58 98.0 77 20 153/76 (101) 98 11/01/18 12:47 193/102 11/01/18 12:47 77 193/102 11/01/18 12:46 77 193/102 11/01/18 12:00 98.0 77 20 193/102 (132) 98 11/01/18 11:37 79 11/01/18 09:00 Room Air 11/01/18 09:00 181/100 11/01/18 09:00 64 181/100 11/01/18 09:00 64 181/100 11/01/18 07:59 97.9 64 20 181/100 (127) 98 11/01/18 07:47 63 11/01/18 04:00 98.9 65 18 182/96 (124) 93 11/01/18 04:00 57 11/01/18 00:00 57 11/01/18 00:00 99.9 60 18 180/88 (118) 96 Intake and Output 10/31/18 11/01/18 19:00 07:00 Intake Total 240 ml 300 ml Balance 240 ml 300 ml Intake Oral 240 ml 300 ml # Voids 2 # Bowel Movements 1 Laboratory Tests 11/01/18 05:40: White Blood Count 4.9, Red Blood Count 2.48L, Hemoglobin 7.8L, Hematocrit 23.7L , Mean Corpuscular Volume 96, Mean Corpuscular Hemoglobin 31.6H, Mean Corpuscular Hemoglobin Concent 33.1, Red Cell Distribution Width 14.7, Platelet Count 186, Mean Platelet Volume 7.0, Neutrophils (%) (Auto) , Lymphocytes (%) ( Auto) , Monocytes (%) (Auto) , Eosinophils (%) (Auto) , Basophils (%) (Auto) , Differential Total Cells Counted 100, Neutrophils % (Manual) 66, Lymphocytes % ( Manual) 14L, Monocytes % (Manual) 14H, Eosinophils % (Manual) 5H, Basophils % ( Manual) 1, Band Neutrophils 0, Platelet Estimate Adequate, Platelet Morphology Normal, Hypochromasia 3+, Anisocytosis 1+, Spherocytes 2+, Sodium Level 139, Potassium Level 6.1*H, Chloride Level 104, Carbon Dioxide Level 23, Anion Gap 11 , Blood Urea Nitrogen 65H, Creatinine 8.7H, Estimat Glomerular Filtration Rate 6.2, Glucose Level 108H, Calcium Level 8.3L, Magnesium Level 2.4 Height (Feet): 5 Height (Inches): 5.00 Weight (Pounds): 170 General Appearance: WD/WN, confused EENT: PERRL/EOMI, TMs normal Neck: non-tender, supple Cardiovascular: normal rate Abdomen: non tender, soft Genitourinary/Rectal: normal genital exam Extremities: non-tender Neurologic: scene and lighting design lecturer II-XII grossly normal, disoriented Neo Trujillo M.D. November 01, 2018 21:26
[2018-11-01] MEDS ORDERED: SEROQUEL25 MG ORAL (21:30)
[2018-11-01] MEDS ORDERED: CATAPRES-TTS-21 EA TDERMAL (21:30)
--- NOTE | 2018-11-01 22:11 | NUR ---
NURSE NOTES: Patient is refusing all scheduled medications and case monitor. Explained risk and benefit, pt. still refused. Patient is combative and attempted to remove wound dressing. No signs of bleeding noted. Wound is dry, and dressing is reinforced. Will continue to monitor for safety. Addendum: 11/01/18 at 2235 by JEANETTE MILLER RN Wrist restrain not on patient. Explained to pt. purpose on restraints, pt. is not attempting to remove wound dressing after wound dressing reinforcement, not attempting to remove IV or ambulate without assist. Will continue to monitor for safety.
--- NOTE | 2018-11-01 22:45 | Consultation ---
DATE OF CONSULTATION: 11/01/2018 PSYCHIATRIC CONSULTATION HISTORY OF PRESENT ILLNESS: The patient is a 63-year-old male with a history of multiple medical problems and elevated troponin, anemia, hyperkalemia, and end-stage renal disease, who has been admitted to the hospital for medical stabilization. The patient is confused and has been noncompliant with medication and refusing hemodialysis. The patient is agitated and pulling out on his caps and removing his central line. The patient was uncooperative with examination and unable to participate in the evaluation. PAST PSYCHIATRIC HISTORY: Significant for encephalopathy. He is on no psychotropic medication per collateral information. PAST MEDICAL HISTORY: Includes anemia, end-stage renal disease, and hypothyroidism. ALLERGIES: No known drug allergies. SUBSTANCE ABUSE HISTORY: No known history of illicit drug use or alcohol. Urine tox was not done in the emergency room. MENTAL STATUS EXAM: The patient is alert, is confused and disoriented, and has psychomotor agitation. Mood is agitated. Affect is flat. Thought process, there is a paucity of thought content. Thought content, no suicidal or homicidal ideation. The patient is delusional. Memory is impaired. ASSESSMENT: Newton I Acute metabolic encephalopathy. Newton II Deferred. Newton III Anemia and metabolic imbalance. Newton IV Low. Newton V 10. PLAN: 1. The patient will continue the restraints. 2. Start the patient on Seroquel p.r.n. 3. Seroquel 25 mg p.o. t.i.d. 4. The patient lacks the capacity to make decisions. Gwen Tran M.D. DR: ELIOT JOB#: [id number] CC:
[2018-11-02] MEDS: Carvedilol 12.5mg tab ORAL SCH ×2 (00:04→10:06)
--- NOTE | 2018-11-02 00:45 | Operative Note - Dictated ---
DATE OF OPERATION: 11/01/2018 PREOPERATIVE DIAGNOSES: 1. Bleeding from PermCath tunneled dialysis catheter site in the right chest. 2. End-stage renal disease. POSTOPERATIVE DIAGNOSES: 1. Bleeding from PermCath tunneled dialysis catheter site in the right chest. 2. End-stage renal disease. FINDINGS: 1. Bleeding from PermCath tunneled dialysis catheter site in the right chest. 2. End-stage renal disease. PROCEDURES: Removal of tunneled dialysis catheter (PermCath) from right chest. SURGEON: Robel Boyd M.D. ANESTHESIA: Local. INDICATION: The patient has been noted to have intermittent bleeding from the catheter exit site and today, it does not seem to be slowing down. He was earlier dialyzed through a patent AV fistula in his left arm successfully and therefore, the PermCath is to be removed. INTRAOPERATIVE FINDINGS: The catheter was removed without difficulty and manual compression was maintained for hemostasis successfully. PROCEDURE IN DETAIL: With the patient in supine position and after the right neck and chest area were prepped and draped in the usual sterile fashion. The skin was infiltrated with local anesthetic and after removal of this catheter, suture site, and skin. The subcutaneous cuff of the catheter was released using blunt and sharp dissection through the catheter exit striking in the right chest, allowing to remove the entire catheter without difficulty. Manual compression was maintained for hemostasis and a pressure dressing was applied. The patient tolerated the procedure well and was transferred to the room in stable condition. ESTIMATED BLOOD LOSS: Minimal. COMPLICATIONS: None. DRAINS: None. The procedure was performed using maximal sterile barrier technique. Robel Boyd M.D. DR: HARVEY JOB#: [id number] CC: Tasha Schaffer M.D. ; FAX#: [phone]
--- NOTE | 2018-11-02 07:52 | NUR ---
HAND-OFF: Report given to TERESA Kemp.
[2018-11-02 08:00] VITALS: BP 145/81
--- NOTE | 2018-11-02 08:17 | NUR ---
NURSE NOTES: Pt in bed in low position, bed alarm not on as the pt has bathroom privileges, pt is resistive to care, refused AM labs and is scheduled for discharge, currently getting an US of left arm on AV shunt, restraints cancelled, pt scheduled for discharge based on labs and confirmation with doctor, currently no s/s of distress or sob noted.
--- NOTE | 2018-11-02 08:58 | NUR ---
CASE MANAGEMENT:REVIEW 11/02/18 SI: ANEMIA. ENCEPHALOPATHY ESRD ON HD 98.0 76 18 152/68 98% ON RA LABS CURRENTLY PENDING AT THIS TIME IS: SYNTHROID PO QD CLONIDINE PATCH QWEEK NORVASC PO QD COZAAR PO QD RENVELA PO TID EPOETIN SQ MWF COREG PO Q12 : TELEMETRY STATUS DCP: FROM STEVEN FAUSTIN
[2018-11-02 09:19] LABS: HEMATOCRIT 20.1 % (42.0-52.0); MEAN CORPUSCULAR VOLUME 96 FL (80-99); PLATELET COUNT 160 K/UL (150-450); RED CELL DISTRIBUTION WIDTH 14.7 % (11.6-14.8); WHITE BLOOD COUNT 5.6 K/UL (4.8-10.8)
[2018-11-02 09:22] LABS: ANION GAP 9 mmol/L (5-15); BLOOD UREA NITROGEN 53 mg/dL (7-18); CALCIUM 7.8 MG/DL (8.5-10.1); CARBON DIOXIDE 26 MMOL/L (21-32); CHLORIDE 102 MMOL/L (98-107); CREATININE 7.5 MG/DL (0.55-1.30); POTASSIUM 5.7 MMOL/L (3.5-5.1); SODIUM 137 MMOL/L (136-145)
[2018-11-02 09:35] LABS: HEMOGLOBIN 6.7 G/DL (14.2-18.0)
--- NOTE | 2018-11-02 09:49 | NUR ---
NURSE NOTES: Called Dr Trujillo pt HGB 6.7 and HCt 20.1 md ordered 2 units of PRBCs and discharge after
[2018-11-02] MEDS: Losartan 50mg tab ORAL SCH (10:06)
--- NOTE | 2018-11-02 10:14 | NUR ---
*-* INSURANCE *-* ALL CLINICALS AND REVIEWS HAVE BEEN FAXED TO: AMITA HARRINGTON F:[phone]
--- NOTE | 2018-11-02 11:18 | NUR ---
RD ASSESSMENT & RECOMMENDATIONS SEE CARE ACTIVITY FOR COMPLETE ASSESSMENT DAILY ESTIMATED NEEDS: Needs based on ESRD on HD, 65.7kg adj 30-35 kcals/kg [id number] total kcals 1.2-1.8 g protein/kg 79-118 g total protein Fluid per MD, on HD NUTRITION DIAGNOSIS: Increased kcal and protein needs r/t ESRD as evidenced by pt on HD CURRENT DIET: Renal PO DIET RECOMMENDATIONS: Maintain RENAL DIET ADDITIONAL RECOMMENDATIONS: 1) Obtain a standing weight 2) Add High protein snacks BID in b/w meals 3) Monitor meal refusals, add Nepro 1 tetra uyen prn (425kcal/ 19g pro each)
[2018-11-02 12:00] VITALS: BP 150/82
[2018-11-02 16:00] VITALS: BP 135/72
--- NOTE | 2018-11-02 17:06 | Anethesia Preoperative Eval ---
Anesthesia Pre-op PMH/ROS General Date of Evaluation: November 02, 2018 Time of Evaluation: 16:58 Anesthesiologist: Alexander ASA Score: ASA 3 Mallampati Score Class I : Soft palate, uvula, fauces, pillars visible Class II: Soft palate, uvula, fauces visible Class III: Soft palate, base of uvula visible Class IV: Only hard plate visible Mallampati Classification: Class III Surgeon: Oliver Diagnosis: Malfunctioning A-V fistula Surgical Procedure: L arm fistulogram Anesthesia History: none Social History: smoking - h/o Family History: no anesthesia problems Allergies: Coded Allergies: No Known Allergies (Unverified , 10/29/18) Medications: see eMAR Patient NPO?: Yes Past Medical History Cardiovascular: Reports: HTN; Denies: CAD, LA, valve dz, arrhythmia, other Pulmonary: Denies: asthma, COPD, SUAD, other Gastrointestinal/Genitourinary: Reports: GERD, ESRD - on HD; Denies: CRI, other Neurologic/Psychiatric: Reports: CVA, other - H/o psychosis encephalopathy; Denies: dementia, depression/anxiety, TIA Endocrine: Reports: DM; Denies: hypothyroidism, steroids, other HEENT: Reports: cataract (L), cataract (R) Hematology/Immune: Reports: anemia, bleeding disorder - bleeding dialysis catheter; Denies: DVT, other Musculoskeletal/Integumentary: Denies: OA, RA, DJD, DDD, edema, other PMH Narrative: as above PSxH Narrative: see H&P Anesthesia Pre-op Phys. Exam Physician Exam Last Vital Signs Date Time Temp Pulse Resp B/P (MAP) Pulse Ox O2 Delivery O2 Flow Rate FiO2 11/02/18 16:00 98.6 69 16 135/72 (93) 97 11/02/18 09:17 Room Air 10/29/18 12:49 3.0 Constitutional: NAD Neurologic: other - unable to obtaine Cardiovascular: RRR Respiratory: other - diminished breath sounds bilaterally Gastrointestinal: S/NT/ND Airway Exam Mallampati Score: Class III MO: limited Neck: stiff ROM: limited Teeth: missing Dentures: no upper, no lower Anesthesia Pre-op A/P Labs Hematology Test 11/02/18 08:30 White Blood Count 5.6 K/UL (4.8-10.8) Red Blood Count 2.10 M/UL (4.70-6.10) L Hemoglobin 6.7 G/DL (14.2-18.0) *L Hematocrit 20.1 % (42.0-52.0) L Mean Corpuscular Volume 96 FL (80-99) Mean Corpuscular Hemoglobin 32.0 PG (27.0-31.0) H Mean Corpuscular Hemoglobin Concent 33.4 G/DL (32.0-36.0) Red Cell Distribution Width 14.7 % (11.6-14.8) Platelet Count 160 K/UL (150-450) Mean Platelet Volume 7.2 FL (6.5-10.1) Neutrophils (%) (Auto) % (45.0-75.0) Lymphocytes (%) (Auto) % (20.0-45.0) Monocytes (%) (Auto) % (1.0-10.0) Eosinophils (%) (Auto) % (0.0-3.0) Basophils (%) (Auto) % (0.0-2.0) Differential Total Cells Counted 100 Neutrophils % (Manual) 64 % (45-75) Lymphocytes % (Manual) 16 % (20-45) L Monocytes % (Manual) 16 % (1-10) H Eosinophils % (Manual) 2 % (0-3) Basophils % (Manual) 2 % (0-2) Band Neutrophils 0 % (0-8) Platelet Estimate Adequate Platelet Morphology Normal Hypochromasia 4+ Spherocytes 2+ Chemistry Test 11/02/18 08:30 Sodium Level 137 MMOL/L (136-145) Potassium Level 5.7 MMOL/L (3.5-5.1) H Chloride Level 102 MMOL/L (98-107) Carbon Dioxide Level 26 MMOL/L (21-32) Anion Gap 9 mmol/L (5-15) Blood Urea Nitrogen 53 mg/dL (7-18) H Creatinine 7.5 MG/DL (0.55-1.30) H Estimat Glomerular Filtration Rate 7.4 mL/min (>60) Glucose Level 74 MG/DL (74-106) Calcium Level 7.8 MG/DL (8.5-10.1) L Risk Assessment & Plan Assessment: ASA3 Plan: GA with Phong Croona MD November 02, 2018 17:06
[2018-11-02 18:00] VITALS: BP 135/72
--- NOTE | 2018-11-02 18:46 | NUR ---
NURSE NOTES: discharge order in patient advised, pt still uncooperative. Board and Care notified, LM and they called back instructed them that the pt pt should be there before 730pm
--- NOTE | 2018-11-02 19:15 | NUR ---
NURSE NOTES: Received pt. and report from TERESA Kemp. Observe pt. resting in bed with both eyes closed. Pt. is ready for discharge; awaiting taxi. Pt. is A/O x4. Pt. discharged education completed with dayscarmenzaft RN. IV removed. Bed is in the locked and in the lowest position. Call light within reach. Will continue plan of care until discharge.
--- NOTE | 2018-11-02 19:24 | NUR ---
HAND-OFF: Report given to Meem Shaffer.
[2018-11-02] MEDS ORDERED: NS 500ML ONE (19:39)
[2018-11-02] MEDS ORDERED: Tubing Blood Filter IV ONE (19:39)
--- NOTE | 2018-11-02 19:45 | NUR ---
NURSE NOTES: Pt. safely discharge via taxi. Pt. transferred from wheelchair to taxi without any incident. Pt. discharged to [facility]. Belongings left with pt.
--- NOTE | 2018-11-03 00:31 | General Progress Note ---
Assessment/Plan Status: not improved Assessment/Plan: Assessment - Anemia, H&H slightly lower - ESRD/HD - perm-a-cath bleeding Recommendations - Await stool OB - po as tolerated - HD - monitor H&H - Telephone ordered RN to give once unit of PRBC - Outpatient EGD/Colon if/when patient agreeable Subjective Allergies: Coded Allergies: No Known Allergies (Unverified , 10/29/18) Subjective (Delayed Entry - Date of service 11/02/2018) was seen in am of 11/02/18 feeling well no abdominal complaints later in am was called by RN re H&H given orders for one unit of packed RBC Objective Last 24 Hour Vital Signs Date Time Temp Pulse Resp B/P (MAP) Pulse Ox O2 Delivery O2 Flow Rate FiO2 11/02/18 18:00 69 135/72 11/02/18 16:00 98.6 69 16 135/72 (93) 97 11/02/18 12:00 98.1 82 18 150/82 (104) 96 11/02/18 10:07 83 145/81 11/02/18 10:06 145/81 11/02/18 10:06 83 145/81 11/02/18 09:17 Room Air 11/02/18 08:00 97.7 83 18 145/81 (102) 97 Intake and Output 11/02/18 11/03/18 19:00 07:00 Intake Total 860 ml Balance 860 ml Intake Oral 860 ml # Voids 3 # Bowel Movements 1 Laboratory Tests 11/02/18 08:30: White Blood Count 5.6, Red Blood Count 2.10L, Hemoglobin 6.7*L, Hematocrit 20.1L , Mean Corpuscular Volume 96, Mean Corpuscular Hemoglobin 32.0H, Mean Corpuscular Hemoglobin Concent 33.4, Red Cell Distribution Width 14.7, Platelet Count 160, Mean Platelet Volume 7.2, Neutrophils (%) (Auto) , Lymphocytes (%) ( Auto) , Monocytes (%) (Auto) , Eosinophils (%) (Auto) , Basophils (%) (Auto) , Differential Total Cells Counted 100, Neutrophils % (Manual) 64, Lymphocytes % ( Manual) 16L, Monocytes % (Manual) 16H, Eosinophils % (Manual) 2, Basophils % ( Manual) 2, Band Neutrophils 0, Platelet Estimate Adequate, Platelet Morphology Normal, Hypochromasia 4+, Spherocytes 2+, Sodium Level 137, Potassium Level 5.7H , Chloride Level 102, Carbon Dioxide Level 26, Anion Gap 9, Blood Urea Nitrogen 53H, Creatinine 7.5H, Estimat Glomerular Filtration Rate 7.4, Glucose Level 74, Calcium Level 7.8L Height (Feet): 5 Height (Inches): 5.00 Weight (Pounds): 170 Objective WDWN L man NCAT supple CTA RRR Abd soft Ext no edema Verena Lieberman MD November 03, 2018 00:31
--- NOTE | 2018-11-03 01:45 | Progress Note ---
DATE: 11/02/2018 PSYCHIATRIC PROGRESS NOTE SUBJECTIVE: The patient is calmer. More redirectable. . No agitation. MENTAL STATUS EXAMINATION: The patient is alert and oriented time self and place. Mood is anxious. Affect is constricted. Congruent with mood. Thought process is concrete. Thought content, no suicidal or homicidal ideations. ASSESSMENT: Acute encephalopathy, resolved. PLAN: 1. The patient will be continued on the current medication. 2. Provide the patient with reality orientation and supportive therapy. Gwen Tran M.D. DR: ELIOT JOB#: [id number] CC:
--- NOTE | 2018-11-03 09:39 | Discharge Summary ---
Discharge Summary Discharge Summary _ DATE OF ADMISSION: 10/29/2018 DATE OF DISCHARGE:11/02/2018 DISCHARGED BY: Dr. Greene REASON FOR ADMISSION: 63 years old male with past medical history of end-stage renal disease ,on hemodialysis ,anemia, diabetes mellitus ,hypertension ,was sent to emergency department for hyperkalemia Patient was refusing hemodialysis. Patient also had a bleeding from Perma-catheter noted with drop in hemoglobin hemoglobin Patient by himself was a poor historian. Upon evaluation hemoglobin 6.5, hematocrit 20.2. Potassium 6.7. BUN 60, creatinine 7.9. Troponin minimally elevated -0.058. pro BNP 63101. Chest x-ray demonstrated hepatomegaly and bilateral interstitial edema CONSULTANTS: GI specialist Dr. Abiel soriano surgery Dr. Boyd psychiatrist [facility] COURSE: Patient admitted to monitored floor. Hyperkalemia was treated. Patient was initially transfused with packed red blood cells . Vascular surgery consult was requested for bleeding from Perma-cath tunneled dialysis catheter in the right chest. Patient subsequently undergone removal of tunneled dialysis catheter from the right chest. Patient had arteriovenous fistula in the left upper extremity. Patient undergone ultrasound of left upper extremity , which revealed patency of the arteriovenous fistula. Hemodialysis provided via left arteriovenous fistula with good flow. Hemodialysis provided with close monitoring of volumes, electrolytes and renal parameters. Electrolytes corrected as needed All medications were renally dosed. GI specialist followed patient for anemia. Hemoglobin and hematocrit were closely monitored with goal to keep hemoglobin above 7. While in the hospital patient undergone transfusion of total of 3 units of packed red blood cells. Epogen provided. Stool for occult blood was ordered , but patient did not provide sample. Patient subsequently undergone EGD and colonoscopy, which revealed gastritis and internal hemorrhoids, status post biopsy. At the time of this dictation biopsy results still pending. GI specialist recommended to follow-up with biopsy results and treat accordingly. Closely monitor hemoglobin and hematocrit. Outpatient anemia work-up with stool for occult blood recommended. Patient was on GI prophylaxis. No further evidence of bleeding. Supplemental oxygen was on board as needed. Pulmonary toilet was on standby. Blood pressure was managed with calcium channel opal, beta-opal and ARB. Telemetry revealed sinus rhythm with a first-degree AV block Troponin on admission minimally elevated, likely due to renal failure. No complaint of chest pain or shortness of breath. Blood sugar was closely monitored, remained stable. Noted elevated TSH. Levothyroxine dose was increased. Repeat thyroid function test in 4 weeks. Psychiatrist followed. Per psychiatrist , patient had acute encephalopathy, which subsequently resolved. Psychiatric medication regimen was continued. Patient was provided with reality orientation and supportive care. Patient clinically stabilized and was ready for transfer back to assisted living for continuation of care FINAL DIAGNOSES: Acute encephalopathy-resolved Pulmonary edema Profound anemia requiring blood transfusion Hyperkalemia -resolved End-stage renal disease, on hemodialysis Bleeding from Perma-cath tunneled dialysis catheter in the right chest Status post removal of tunneled dialysis catheter from right chest DISCHARGE MEDICATIONS: See Medication Reconciliation list. DISCHARGE INSTRUCTIONS: Patient was to Board and Care. Follow up with primary care provider in one week. Follow up with outpatient hemodialysis. Reinforced compliance with hemodialysis and medications. I have been assigned to dictate discharge summary for this account. I was not involved in the patient's management. Quyen Howe NP November 03, 2018 09:39
--- NOTE | 2018-11-03 09:59 | Diagnostic Imaging Report ---
APPROVED REPORT CPT Code: 73598 Present Symptoms Comments: Evaluation of AVF LEFT UPPER EXTREMITY: Imaging reveals patency of the arterio-venous fistula, the radial artery to the cephalic vein, at the forearm level. Color flow duplex sonography reveals patency of the subclavian, axillary, brachial, radial and ulnar arteries. Deep venous system is within normal limits. Subclavian artery : 80 cm/s Monophasic Axillary artery: 90 cm/s Monophasic proximal Brachial artery: 60 cm/s triphasis anastomosis: 0.30cm, 276 cm/s Monophasic Mid Graft: (0.60 X 0.60 cm/s) 83 cm/s Monophasic Radial artery: 83 cm/s monophasic Cephalic outflow vein is patent.
--- NOTE | 2018-11-03 10:12 | NUR ---
*-* INSURANCE *-* DISCHARGE SUMMARY HAVE BEEN FAXED TO: AMITA HARRINGTON F:[phone]
--- NOTE | 2018-11-03 16:14 | Cardiology Report ---
APPROVED REPORT EKG Measurement Heart [id number] Sinus bradycardia with 1st degree AV block Low voltage QRS Borderline ECG
== END 2018-11-02 19:40 | disposition home or self-care (01) | DRG 663 ==
LOC: EDBD 13:05 → EMR 14:12 → 2E 14:40 → EDBEDREQ 15:31 → 2E 10-30 17:02 → UNDODISIN 11-02 18:23
PROC: 30233N1 Transfusion of Nonautologous Red Blood Cells into Peripheral Vein, Percutaneous Approach (ICD-10-PCS; 2018-10-29)
PROC: 5A1D70Z Performance of Urinary Filtration, Intermittent, Less than 6 Hours Per Day (ICD-10-PCS; 2018-10-30)
PROC: 0JPTXXZ Removal of Tunneled Vascular Access Device from Trunk Subcutaneous Tissue and Fascia, External Approach (ICD-10-PCS; principal; 2018-11-01)
DX: D62 Acute posthemorrhagic anemia (principal); J81.0 Acute pulmonary edema; G93.41 Metabolic encephalopathy; I12.0 Hypertensive chronic kidney disease with stage 5 chronic kidney disease or end stage renal disease; E87.5 Hyperkalemia; N18.6 End stage renal disease; D63.1 Anemia in chronic kidney disease; Z99.2 Dependence on renal dialysis; T82.838A Hemorrhage due to vascular prosthetic devices, implants and grafts, initial encounter; Y84.8 Other medical procedures as the cause of abnormal reaction of the patient, or of later complication, without mention of misadventure at the time of the procedure
CPT/HCPCS: 36415; 36430; 71045; 80048; 80053; 82550; 83690; 83735; 83880; 84443; 84484; 85007; 85025; 85610; 85730; 86850; 86900; 86901; 86920; 93005; 93990; 96374; 99291

== ENCOUNTER 2019-03-19 18:51 | Emergency (ER) | payer OTHER ==
[~2019-03-19] VITALS: Ht 172.7 cm; Wt 65.8 kg
[~2019-03-19 18:51] MED LIST: CATAPRES-TTS-21 EA TDERMAL; COREG12.5 MG ORAL; DOXAZOSIN MESYLA2 MG ORAL; LOSARTAN POTAS100 MG ORAL; NORVASC5 MG ORAL; RENVELA800 MG ORAL; SEROQUEL25 MG ORAL
--- NOTE | 2019-03-19 18:59 | Emergency Room Report ---
History of Present Illness General Chief Complaint: General Complaint Source: Patient Present Illness HPI 63-year-old male presents with bleeding dialysis fistula just prior to arrival, lasting minutes, no aggravating factors no relieving factors severity was moderate, constant for minutes, they have obtained hemostasis with pressure dressing. Patient denies any cp sob, no lightheadness. Patient presents for evaluation Allergies: Coded Allergies: No Known Allergies (Unverified , 10/29/18) Patient History Past Medical History: see triage record Reviewed Nursing Documentation: PMH: Agreed; PSxH: Agreed Nursing Documentation-PMH Hx Cardiac Problems: Yes Hx Hypertension: Yes Hx Asthma: No - ESRD Hx Diabetes: Yes Hx Cancer: No Hx Gastrointestinal Problems: No Hx Neurological Problems: No Review of Systems All Other Systems: negative except mentioned in HPI Physical Exam Vital Signs Date Time Temp Pulse Resp B/P (MAP) Pulse Ox O2 Delivery O2 Flow Rate FiO2 03/19/19 18:48 97.3 66 19 153/73 (99) 100 Sp02 EP Interpretation: reviewed, normal General Appearance: well appearing, no apparent distress, alert Head: normocephalic, atraumatic Eyes: bilateral eye PERRL, bilateral eye EOMI ENT: uvula midline, moist mucus membranes Neck: supple, thyroid normal, supple/symm/no masses Respiratory: lungs clear, no respiratory distress, no retraction, no accessory muscle use Cardiovascular #1: normal peripheral pulses, regular rate, rhythm, no edema, no gallop, no murmur Gastrointestinal: non tender, soft, no guarding, no rebound Musculoskeletal: other - Left upper extremity: Fistula present palpable thrill hemostasis achieved Neurologic: alert, oriented x3 Psychiatric: mood/affect normal Skin: no rash, warm/dry Medical Decision Making Diagnostic Impression: Primary Impression: Hemorrhage of surgically-created arteriovenous fistula Qualified Codes: T82.838A - Hemorrhage due to vascular prosthetic devices, implants and grafts, initial encounter ER Course 63-year-old male presents with bleeding fistula, hemostasis achieved, will obtain labs and observe patient Reevaluation 8:20 PM, patient has continued hemostasis, repeat H&H higher than from previous hospitalization Will disposition patient home Laboratory Tests Test 03/19/19 19:20 White Blood Count 4.3 K/UL (4.8-10.8) L Red Blood Count 3.08 M/UL (4.70-6.10) L Hemoglobin 9.9 G/DL (14.2-18.0) L Hematocrit 29.0 % (42.0-52.0) L Mean Corpuscular Volume 94 FL (80-99) Mean Corpuscular Hemoglobin 32.3 PG (27.0-31.0) H Mean Corpuscular Hemoglobin Concent 34.3 G/DL (32.0-36.0) Red Cell Distribution Width 12.9 % (11.6-14.8) Platelet Count 104 K/UL (150-450) L Mean Platelet Volume 7.5 FL (6.5-10.1) Neutrophils (%) (Auto) 69.0 % (45.0-75.0) Lymphocytes (%) (Auto) 16.0 % (20.0-45.0) L Monocytes (%) (Auto) 11.0 % (1.0-10.0) H Eosinophils (%) (Auto) 2.9 % (0.0-3.0) Basophils (%) (Auto) 1.2 % (0.0-2.0) Prothrombin Time Pending Prothrombin Time INR Pending PTT Pending Sodium Level 139 MMOL/L (136-145) Potassium Level 3.1 MMOL/L (3.5-5.1) L Chloride Level 100 MMOL/L (98-107) Carbon Dioxide Level 36 MMOL/L (21-32) H Anion Gap 3 mmol/L (5-15) L Blood Urea Nitrogen 18 mg/dL (7-18) Creatinine 2.8 MG/DL (0.55-1.30) H Estimate Glomerular Filtration Rate 22.9 mL/min (>60) Glucose Level 117 MG/DL (74-106) H Calcium Level 8.6 MG/DL (8.5-10.1) Total Bilirubin 1.2 MG/DL (0.2-1.0) H Direct Bilirubin 0.4 MG/DL (0.0-0.3) H Aspartate Amino Transferase (AST) 15 U/L (15-37) Alanine Aminotransferase (ALT) 13 U/L (12-78) Alkaline Phosphatase 171 U/L (46-116) H Total Protein 6.9 G/DL (6.4-8.2) Albumin 3.0 G/DL (3.4-5.0) L Globulin 3.9 g/dL Albumin/Globulin Ratio 0.8 (1.0-2.7) L Last Vital Signs Date Time Temp Pulse Resp B/P (MAP) Pulse Ox O2 Delivery O2 Flow Rate FiO2 03/19/19 18:48 97.3 66 19 153/73 (99) 100 Disposition: XFER SNF - BOARD AND CARE Referrals: [facility] Patient Instructions: AV Fistula Placement, Care After, Vascular Access for Hemodialysis Additional Instructions: The patient was provided with discharge instructions, notified to follow-up with a primary care doctor and or specialist in the next 24-48 hours, and to return to the ED if they have worsening of their symptoms. Please note that this report is being documented using [employer] technology. This can lead to erroneous entry secondary to incorrect interpretation by the dictating instrument. PATIENT NO LONGER HAS ANY BLEEDING CONTINUE WATCHING SITE FOR ANY BLEED. HE MAY FOLLOW-UP WITH HIS PCP IN 24-48 HOURS Johnny Castillo MD Mar 19, 2019 18:59
--- NOTE | 2019-03-19 19:10 | NUR ---
HAND-OFF: Report given to Alexandrea MOORE.
--- NOTE | 2019-03-19 19:15 | NUR ---
ED Nurse Note: Recieved pt from dialysis center with c/o bleeding shunt, pt has AV shunt on left lower forearm with mild bleeding noted, wrapped with rpessure dressing, at bedside, pt immediately gowned, iv l;ine placed in right arm and pt placed onc ardiac monitoring, pt is awake, alert and oriented x 4, deneis pain, no sob or labored breathing, all labs completed, will resume care as ordered and closely monitor.
[2019-03-19 19:25] VITALS: BP 153/73
[2019-03-19 19:32] LABS: BASOPHILS % (AUTO) 1.2 % (0.0-2.0); EOSINOPHILS % (AUTO) 2.9 % (0.0-3.0); HEMOGLOBIN 9.9 G/DL (14.2-18.0); MEAN CORPUSCULAR VOLUME 94 FL (80-99); PLATELET COUNT 104 K/UL (150-450); RED BLOOD COUNT 3.08 M/UL (4.70-6.10); RED CELL DISTRIBUTION WIDTH 12.9 % (11.6-14.8); WHITE BLOOD COUNT 4.3 K/UL (4.8-10.8)
[2019-03-19 19:39] LABS: ANION GAP 3 mmol/L (5-15); BLOOD UREA NITROGEN 18 mg/dL (7-18); CALCIUM 8.6 MG/DL (8.5-10.1); CARBON DIOXIDE 36 MMOL/L (21-32); CHLORIDE 100 MMOL/L (98-107); CREATININE 2.8 MG/DL (0.55-1.30); POTASSIUM 3.1 MMOL/L (3.5-5.1); SODIUM 139 MMOL/L (136-145)
[2019-03-19 19:50] LABS: ALANINE AMINOTRANSFERASE 13 U/L (12-78); ALBUMIN/GLOBULIN RATIO 0.8 (1.0-2.7); ALKALINE PHOSPHATASE 171 U/L (46-116); ASPARTATE AMINO TRANSFERASE 15 U/L (15-37); BILIRUBIN,DIRECT 0.4 MG/DL (0.0-0.3); BILIRUBIN,TOTAL 1.2 MG/DL (0.2-1.0)
[2019-03-19 20:05] LABS: INR 1.2 (0.9-1.1)
--- NOTE | 2019-03-19 20:15 | NUR ---
ED Nurse Note: NO ACTIVE BLEEDING NOTED, DRESSING APPLIED BY MD AND CLEAN AND DRY, TP RESTING QUIETLY, LABS DRAWN AND SENT, WILL CONTINUE TO NATY MONITOR.
--- NOTE | 2019-03-19 20:36 | NUR ---
ED Nurse Note: called [facility] and spoke with Roxana, nursing sup, notified that pt is returning back cleared to be d/c per ERMD, keep the bandage on for 24 hr.
--- NOTE | 2019-03-19 21:15 | NUR ---
ED Nurse Note: PT RESTING QUIETLY, NO CHANGES OR BLEEDING NOTED, DRESSING CLEAN AND DRY, PT DENIES PAIN OR ANY DISTRESS, WILL CONTINUE TO CLOSELY MONITOR.
[2019-03-19 22:30] VITALS: BP 160/71
--- NOTE | 2019-03-19 23:00 | NUR ---
ED Nurse Note: PT CONTINUES TO REST IN BED, NEW AMBULANCE ETA GIVEN, PT AMBULATED TO BATHROOM, TOELRATED WELL, STEADY GAIT, DENIES PAIN, NO SOB OR LABORED BREATHING, IV SITE PATENT, WILL CONTINUE TO CLOSELY MONITOR WHILE WAITING FOR TRANSPORT.
[2019-03-20 00:10] VITALS: BP 163/69
[2019-03-20 00:20] VITALS: BP 160/71
== END 2019-03-20 00:23 ==
LOC: EDBD 18:51 → EMR 19:08
DX: T82.838A Hemorrhage due to vascular prosthetic devices, implants and grafts, initial encounter (principal); I12.0 Hypertensive chronic kidney disease with stage 5 chronic kidney disease or end stage renal disease; E11.22 Type 2 diabetes mellitus with diabetic chronic kidney disease; N18.6 End stage renal disease; Y84.1 Kidney dialysis as the cause of abnormal reaction of the patient, or of later complication, without mention of misadventure at the time of the procedure; Y92.9 Unspecified place or not applicable
CPT/HCPCS: 36415; 80053; 82248; 85025; 85610; 85730; 86850; 86900; 86901; Z7502; 99284

== ENCOUNTER 2019-03-26 19:43 | Emergency (ER) | payer OTHER ==
[~2019-03-26] VITALS: Ht 160 cm; Wt 72.6 kg
--- NOTE | 2019-03-26 19:45 | NUR ---
ED Nurse Note: Patient was BIBA from [facility] due to bleeding on his left forearm, were his vistula is. Stated that was on dialysis today, and after that he started picking his arm, and it started bleeding. AAO x2, VSS at this time, skin is warm to touch
--- NOTE | 2019-03-26 19:58 | Emergency Room Report ---
History of Present Illness General Chief Complaint: General Complaint Source: Patient, Medical Record, EMS Present Illness HPI Patient is a 63-year-old male brought in from boarding care after increased bleeding from his dialysis access. Patient had dialysis earlier in the day. He had been noted to have some moderate amount of blood from the area. He denies any current complaints. Patient's arm had been dressed with a pressure bandage prior to arrival. Allergies: Coded Allergies: No Known Allergies (Unverified , 10/29/18) Patient History Reviewed Nursing Documentation: PMH: Agreed; PSxH: Agreed Nursing Documentation-PMH Hx Cardiac Problems: Yes Hx Hypertension: Yes Hx Asthma: No - ESRD Hx Diabetes: Yes Hx Cancer: No Hx Gastrointestinal Problems: No Hx Dialysis: Yes - T, TH, SAT Hx Neurological Problems: No - dementia Review of Systems All Other Systems: negative except mentioned in HPI Physical Exam Vital Signs Date Time Temp Pulse Resp B/P (MAP) Pulse Ox O2 Delivery O2 Flow Rate FiO2 03/26/19 19:39 60 18 165/82 (109) 98 Room Air General Appearance: alert, GCS 15, Chronically Ill Respiratory: chest non-tender, lungs clear Cardiovascular #1: normal inspection, normal peripheral pulses Gastrointestinal: normal inspection, soft Neurologic: normal inspection, alert, oriented x3 Skin: other - fistula with palpable pulse, no bleeding noted Medical Decision Making Diagnostic Impression: Primary Impression: Bleeding from dialysis shunt Labs Test 03/26/19 20:15 White Blood Count 3.7 K/UL (4.8-10.8) Red Blood Count 2.83 M/UL (4.70-6.10) Hemoglobin 9.2 G/DL (14.2-18.0) Hematocrit 26.6 % (42.0-52.0) Mean Corpuscular Volume 94 FL (80-99) Mean Corpuscular Hemoglobin 32.6 PG (27.0-31.0) Mean Corpuscular Hemoglobin Concent 34.7 G/DL (32.0-36.0) Red Cell Distribution Width 12.9 % (11.6-14.8) Platelet Count 120 K/UL (150-450) Mean Platelet Volume 7.8 FL (6.5-10.1) Neutrophils (%) (Auto) 60.9 % (45.0-75.0) Lymphocytes (%) (Auto) 17.3 % (20.0-45.0) Monocytes (%) (Auto) 17.7 % (1.0-10.0) Eosinophils (%) (Auto) 2.5 % (0.0-3.0) Basophils (%) (Auto) 1.6 % (0.0-2.0) Sodium Level 135 MMOL/L (136-145) Potassium Level 3.1 MMOL/L (3.5-5.1) Chloride Level 96 MMOL/L (98-107) Carbon Dioxide Level 33 MMOL/L (21-32) Anion Gap 6 mmol/L (5-15) Blood Urea Nitrogen 12 mg/dL (7-18) Creatinine 2.4 MG/DL (0.55-1.30) Estimat Glomerular Filtration Rate 27.4 mL/min (>60) Glucose Level 158 MG/DL (74-106) Calcium Level 8.1 MG/DL (8.5-10.1) Total Bilirubin 0.9 MG/DL (0.2-1.0) Aspartate Amino Transf (AST/SGOT) 19 U/L (15-37) Alanine Aminotransferase (ALT/SGPT) 10 U/L (12-78) Alkaline Phosphatase 173 U/L (46-116) Total Protein 7.0 G/DL (6.4-8.2) Albumin 3.1 G/DL (3.4-5.0) Globulin 3.9 g/dL Albumin/Globulin Ratio 0.8 (1.0-2.7) Last Vital Signs Date Time Temp Pulse Resp B/P (MAP) Pulse Ox O2 Delivery O2 Flow Rate FiO2 03/26/19 19:39 60 18 165/82 (109) 98 Room Air Status: improved Disposition: HOME, SELF-CARE Condition: Stable Joo Rivera MD Mar 26, 2019 19:58
[2019-03-26 20:28] LABS: BASOPHILS % (AUTO) 1.6 % (0.0-2.0); EOSINOPHILS % (AUTO) 2.5 % (0.0-3.0); HEMATOCRIT 26.6 % (42.0-52.0); HEMOGLOBIN 9.2 G/DL (14.2-18.0); LYMPHOCYTES % (AUTO) 17.3 % (20.0-45.0); MEAN CORPUSCULAR VOLUME 94 FL (80-99); MONOCYTES % (AUTO) 17.7 % (1.0-10.0); NEUTROPHILS % (AUTO) 60.9 % (45.0-75.0); PLATELET COUNT 120 K/UL (150-450); RED BLOOD COUNT 2.83 M/UL (4.70-6.10); RED CELL DISTRIBUTION WIDTH 12.9 % (11.6-14.8); WHITE BLOOD COUNT 3.7 K/UL (4.8-10.8)
[2019-03-26 20:32] LABS: ANION GAP 6 mmol/L (5-15); BLOOD UREA NITROGEN 12 mg/dL (7-18); CALCIUM 8.1 MG/DL (8.5-10.1); CARBON DIOXIDE 33 MMOL/L (21-32); CHLORIDE 96 MMOL/L (98-107); CREATININE 2.4 MG/DL (0.55-1.30); POTASSIUM 3.1 MMOL/L (3.5-5.1); SODIUM 135 MMOL/L (136-145)
[2019-03-26 20:38] LABS: ALANINE AMINOTRANSFERASE 10 U/L (12-78); ALBUMIN 3.1 G/DL (3.4-5.0); ALBUMIN/GLOBULIN RATIO 0.8 (1.0-2.7); ALKALINE PHOSPHATASE 173 U/L (46-116); ASPARTATE AMINO TRANSFERASE 19 U/L (15-37); BILIRUBIN,TOTAL 0.9 MG/DL (0.2-1.0)
[2019-03-26] MEDS ORDERED: SEROQUEL50 MG ORAL (21:30)
[2019-03-26] MEDS ORDERED: HYDRALAZINE HCL25 M2 PO (21:30)
[2019-03-26] MEDS ORDERED: ISOSORBIDE DINI20 M2 PO (21:30)
[2019-03-26] MEDS ORDERED: CALCITRIOL0.25 MCG PO (21:30)
[2019-03-26] MEDS ORDERED: RENVELA800 MG ORAL (21:30)
[2019-03-26] MEDS ORDERED: COREG25 MG ORAL (21:30)
[2019-03-26] MEDS ORDERED: RENVELA0.8 GM ORAL (21:30)
[2019-03-26] MEDS ORDERED: LOSARTAN POTAS100 MG ORAL (21:30)
[2019-03-26 23:40] VITALS: BP 157/71
--- NOTE | 2019-03-26 23:42 | NUR ---
ER DISCHARGE NOTE: Patient is cleared to be discharged per ERMD. Patient was transfered back to [facility] via [id number], pt is aox2, on room air, with stable vital signs. pt was given dc and prescription instructions, pt ID band and IV site removed without complications. pt is able to ambulate, pt took all belongings.
== END 2019-03-26 23:45 | disposition home or self-care (01) ==
LOC: EDBD 19:43 → EMR 20:18
DX: T82.838A Hemorrhage due to vascular prosthetic devices, implants and grafts, initial encounter (principal); E11.22 Type 2 diabetes mellitus with diabetic chronic kidney disease; I12.0 Hypertensive chronic kidney disease with stage 5 chronic kidney disease or end stage renal disease; N18.6 End stage renal disease; Z99.2 Dependence on renal dialysis; F03.90 Unspecified dementia, unspecified severity, without behavioral disturbance, psychotic disturbance, mood disturbance, and anxiety; Y84.1 Kidney dialysis as the cause of abnormal reaction of the patient, or of later complication, without mention of misadventure at the time of the procedure; Y92.9 Unspecified place or not applicable
CPT/HCPCS: 36415; 80053; 85025; Z7502; 99284

== ENCOUNTER 2019-04-16 19:27 | Inpatient (IN) | payer OTHER ==
[~2019-04-16] VITALS: Ht 175.3 cm; Wt 91.6 kg
[~2019-04-16 19:27] MED LIST changes: +CALCITRIOL0.25 MCG PO; +COREG25 MG ORAL; +HYDRALAZINE HCL25 M2 PO; +ISOSORBIDE DINI20 M2 PO; +RENVELA0.8 GM ORAL; +SEROQUEL50 MG ORAL
[2019-04-16 19:40] VITALS: BP 166/82
--- NOTE | 2019-04-16 19:40 | NUR ---
ED Nurse Note: Patient was BIBA from [facility] due to active bleeding of fistula. Patient has Hx of dementia, and after each dialysis he skratches his fistula. Patient presented calm, VSS at this time, fistula on his left forearm is bleeding. AAO x1, skin is warm to touch.
[2019-04-16] MEDS ORDERED: Surgicel 4in x 8in TOPIC ONE (19:45)
[2019-04-16 20:23] LABS: BASOPHILS % (AUTO) 0.9 % (0.0-2.0); EOSINOPHILS % (AUTO) 4.5 % (0.0-3.0); HEMATOCRIT 26.5 % (42.0-52.0); HEMOGLOBIN 8.8 G/DL (14.2-18.0); LYMPHOCYTES % (AUTO) 15.8 % (20.0-45.0); MEAN CORPUSCULAR VOLUME 97 FL (80-99); NEUTROPHILS % (AUTO) 64.7 % (45.0-75.0); PLATELET COUNT 103 K/UL (150-450); RED BLOOD COUNT 2.73 M/UL (4.70-6.10); WHITE BLOOD COUNT 3.7 K/UL (4.8-10.8)
[2019-04-16 20:29] LABS: INR 1.2 (0.9-1.1)
[2019-04-16 20:30] LABS: ANION GAP 7 mmol/L (5-15); BLOOD UREA NITROGEN 21 mg/dL (7-18); CALCIUM 8.8 MG/DL (8.5-10.1); CARBON DIOXIDE 35 MMOL/L (21-32); CHLORIDE 98 MMOL/L (98-107); CREATININE 3.9 MG/DL (0.55-1.30); POTASSIUM 3.6 MMOL/L (3.5-5.1); SODIUM 140 MMOL/L (136-145)
[2019-04-16 20:35] LABS: ALANINE AMINOTRANSFERASE 36 U/L (12-78); ALBUMIN 3.5 G/DL (3.4-5.0); ALBUMIN/GLOBULIN RATIO 0.8 (1.0-2.7); ALKALINE PHOSPHATASE 171 U/L (46-116); ASPARTATE AMINO TRANSFERASE 21 U/L (15-37); BILIRUBIN,TOTAL 0.8 MG/DL (0.2-1.0)
--- NOTE | 2019-04-16 21:44 | NUR ---
ED Nurse Note: Patient was able to ambulate to the bathroom.
--- NOTE | 2019-04-16 21:48 | Emergency Room Report ---
History of Present Illness General Chief Complaint: General Complaint Source: Medical Record, EMS Present Illness HPI 63-year-old male presents ED for evaluation. Brought in by EMS from assisted living for bleeding AV fistula. Patient sees on dialysis. Got dialysis today and patient pulled off his pressure dressing. Patient has dementia and is known to pull off his dressings prematurely. Per EMS there was a lot of bleeding. They applied pressure dressings. Patient is nonverbal at baseline. Unable to provide any additional history. No signs of distress upon arrival. No other aggravating relieving factors. No other associated symptoms Allergies: Coded Allergies: No Known Allergies (Unverified , 10/29/18) Patient History Past Medical History: DM, HTN, dementia, renal disease, dialysis Social History: Denies: smoking, alcohol use, drug use Immunizations: UTD Reviewed Nursing Documentation: PMH: Agreed; PSxH: Agreed Nursing Documentation-PMH Hx Cardiac Problems: Yes Hx Hypertension: Yes Hx Asthma: No - ESRD Hx Diabetes: Yes Hx Cancer: No Hx Gastrointestinal Problems: No - ESRD Hx Dialysis: Yes - T, TH, SAT History Of Psychiatric Problem: Yes - Dementia Hx Neurological Problems: No - dementia Review of Systems All Other Systems: limited Physical Exam Vital Signs Date Time Temp Pulse Resp B/P (MAP) Pulse Ox O2 Delivery O2 Flow Rate FiO2 04/16/19 19:17 98.4 68 18 166/82 (110) 95 Room Air Sp02 EP Interpretation: reviewed, normal General Appearance: no apparent distress, alert, non-toxic, other - dementia Head: normocephalic Eyes: bilateral eye normal inspection, bilateral eye PERRL ENT: normal ENT inspection Neck: normal inspection Respiratory: chest non-tender, lungs clear, normal breath sounds, speaking full sentences Cardiovascular #1: regular rate, rhythm, no edema, other - bleeding from AV Fistula LUE. bruit noted Gastrointestinal: normal inspection Rectal: deferred Genitourinary: no CVA tenderness Musculoskeletal: normal inspection Neurologic: other - dementia Psychiatric: other - dementia Skin: other - see nrusing notes for skin Lymphatic: normal inspection Medical Decision Making Diagnostic Impression: Primary Impression: Bleeding from dialysis shunt Qualified Codes: T82.838A - Hemorrhage due to vascular prosthetic devices, implants and grafts, initial encounter Additional Impressions: Anemia Qualified Codes: D64.9 - Anemia, unspecified ESRD (end stage renal disease) on dialysis Dementia Qualified Codes: F03.90 - Unspecified dementia without behavioral disturbance ER Course Hospital Course 63 yo M presents with bleeding from LUE AV Fistula. pulled off dressing early. h /o dementia Differential diagnoses include: hemorrhage from AV fistula, anemia, hypotension Clinical course Patient placed on stretcher. on nursing manager with stable vitals. After initial history, exam reveals elderly male in no acute distress. When dressing removed there appeared to be pulsatile bleeding from the AV fistula. bruit noted. Pressure was applied and did slow down the bleeding significantly. Surgicel and pressure dressing applied. I ordered labs. There was mild anemia. Minimally elevated troponin. No hyperkalemia. EKGnormal sinus rhythm no acute ischemic changes interpreted by me Patient had been here previously for similar presentation where he pulled off his dressing too soon. Hemoglobin at this time slightly lower than those previous visits. Given dementia and nonadherence to regimen I believe patient is not safe to be discharged. Dr Quinones will evaluat the patient Case discussed with Dr. Trujillo and he agreed to accept the patient to his service for further care and support I. I feel this is a highly complex case requiring extensive working including EKG/Rhythm strip, Xray/CT/US, Blood/urine lab work, repeat exams while in ED, and administration of strong opiates/narcotics for pain control, admission to hospital or close patient follow up. Diagnosis - bleeding from dialysis shunt, anemia, ESRD on dialysis, dementia admitted to telemetry in serious condition Labs Test 04/16/19 20:00 White Blood Count 3.7 K/UL (4.8-10.8) Red Blood Count 2.73 M/UL (4.70-6.10) Hemoglobin 8.8 G/DL (14.2-18.0) Hematocrit 26.5 % (42.0-52.0) Mean Corpuscular Volume 97 FL (80-99) Mean Corpuscular Hemoglobin 32.3 PG (27.0-31.0) Mean Corpuscular Hemoglobin Concent 33.4 G/DL (32.0-36.0) Red Cell Distribution Width 15.0 % (11.6-14.8) Platelet Count 103 K/UL (150-450) Mean Platelet Volume 7.0 FL (6.5-10.1) Neutrophils (%) (Auto) 64.7 % (45.0-75.0) Lymphocytes (%) (Auto) 15.8 % (20.0-45.0) Monocytes (%) (Auto) 14.0 % (1.0-10.0) Eosinophils (%) (Auto) 4.5 % (0.0-3.0) Basophils (%) (Auto) 0.9 % (0.0-2.0) Prothrombin Time 12.6 SEC (9.30-11.50) Prothromb Time International Ratio 1.2 (0.9-1.1) Activated Partial Thromboplast Time 29 SEC (23-33) Sodium Level 140 MMOL/L (136-145) Potassium Level 3.6 MMOL/L (3.5-5.1) Chloride Level 98 MMOL/L (98-107) Carbon Dioxide Level 35 MMOL/L (21-32) Anion Gap 7 mmol/L (5-15) Blood Urea Nitrogen 21 mg/dL (7-18) Creatinine 3.9 MG/DL (0.55-1.30) Estimat Glomerular Filtration Rate 15.6 mL/min (>60) Glucose Level 200 MG/DL (74-106) Calcium Level 8.8 MG/DL (8.5-10.1) Total Bilirubin 0.8 MG/DL (0.2-1.0) Aspartate Amino Transf (AST/SGOT) 21 U/L (15-37) Alanine Aminotransferase (ALT/SGPT) 36 U/L (12-78) Alkaline Phosphatase 171 U/L (46-116) Troponin I 0.058 ng/mL (0.000-0.056) Total Protein 7.9 G/DL (6.4-8.2) Albumin 3.5 G/DL (3.4-5.0) Globulin 4.4 g/dL Albumin/Globulin Ratio 0.8 (1.0-2.7) EKG Diagnostic Results Rate: normal Rhythm: NSR ST Segments: no acute changes ASA given to the pt in ED: No Rhythm Strip Diag. Results EP Interpretation: yes Rhythm: NSR, no PVC's, no ectopy Last Vital Signs Date Time Temp Pulse Resp B/P (MAP) Pulse Ox O2 Delivery O2 Flow Rate FiO2 04/16/19 19:40 68 18 Room Air 04/16/19 19:40 98.4 166/82 95 Status: improved Disposition: ADMITTED INPATIENT Condition: Serious Referrals: [facility] (PCP) Willard Collins MD Apr 16, 2019 21:48
--- NOTE | 2019-04-16 22:13 | NUR ---
ED Nurse Note: Swabed patient for MRSA, sent down, patient refused VRE,CRE swabs.
[2019-04-16] MEDS ORDERED: CALCITRIOL0.25 MCG PO (22:51)
[2019-04-16] MEDS ORDERED: DOXAZOSIN MESYLA2 MG ORAL (22:51)
[2019-04-16] MEDS ORDERED: NORVASC10 MG ORAL (22:51)
[2019-04-16] MEDS ORDERED: VITAMIN D22000 UNIT PO (22:51)
[2019-04-16] MEDS ORDERED: RENVELA0.8 GM ORAL (22:51)
[2019-04-16 23:15] VITALS: BP 154/78
--- NOTE | 2019-04-16 23:15 | NUR ---
ED Nurse Note: Patient was admited to Tele for observation, due to bleeding shunt. Patient was transfered to the unit via gurney by ACLS protocol, with all belongings. AAO x1, VSS at this time.
--- NOTE | 2019-04-16 23:40 | NUR ---
NURSE NOTES: Patient was received from [facility] from ED, admitted to Tele for observation, due to bleeding shunt. Belongings accounted for, pt wearing own clothing, refuses to wear hospital gown, refuses to be assessed as he says he wants to sleep right now. AAO x1, confused pt, in no acute distress, no complaints of pain, VSS at this time.
--- NOTE | 2019-04-16 23:40 | NUR ---
Patient was received from [facility] from ED, admitted to [facility] for observation, due to bleeding shunt. Belongings accounted for, pt wearing own clothing, refuses to wear hospital gown, refuses to be assessed as he says he wants to sleep right now. AAO x1, confused pt, in no acute distress, no complaints of pain, VSS at this time.
--- NOTE | 2019-04-17 | NUR ---
NURSE NOTES: Attempted to again apply the cardiac care unit nurse and was going to assist patient to put on gown to complete assessment but pt refused everything and asked to let him sleep. Was able to listen to lungs and assessed edematous ankles, pitting L>R 2+ pitting
--- NOTE | 2019-04-17 | NUR ---
NURSE NOTES: Calling physician Shtorch again. Was told Dr confectionery laboratory manager, would call me back for admitting orders, no dr has called back, still awaiting admitting orders.
[2019-04-17 00:36] VITALS: BP 150/70
--- NOTE | 2019-04-17 01:00 | NUR ---
NURSE NOTES: Calling physician Shtorch again. Was told Dr push connector assembler would call me back for admitting orders, no dr has called back, still awaiting admitting orders.
--- NOTE | 2019-04-17 01:14 | NUR ---
NURSE NOTES: Was told by checkout operator for [facility] that he is unable to be reached at this time and that a message will be left for him.
--- NOTE | 2019-04-17 02:08 | NUR ---
NURSE NOTES: Still no call back, no response from physician, still awaiting response
--- NOTE | 2019-04-17 02:35 | NUR ---
NURSE NOTES: Pt stated he had "diarrhea" was going to collect Cdiff, but saw pt bowel movement and it was soft, somewhat formed, not liquid. Cancelled cdiff order.
--- NOTE | 2019-04-17 05:48 | NUR ---
NURSE NOTES: Still attempting to get orders from Dr Trujillo. Just called again and still no orders, Left a message to return my call for orders.
--- NOTE | 2019-04-17 06:24 | NUR ---
NURSE NOTES: Pt is upset because he says he is very hungry. I still do not have orders from Dr Trujillo despite trying to reach him multiple times. I tried to move the patient closer to the nursing station however pt refused. Pt is sitting up in bed very upset as he says, "You're not hungry, the doctor is not hungry, but I am hungry... I want to leave." Pt is very confused however and cannot leave AMA as he would like to. He says if we feed him, he will stay, otherwise he wants to leave.
--- NOTE | 2019-04-17 07:47 | NUR ---
NURSE NOTES: 7:47am: Paged Dr. Trujillo for admission orders and diet order. Awaiting call back.
--- NOTE | 2019-04-17 08:06 | NUR ---
NURSE NOTES: Received report from TERESA Hoover. Patient in bed resting, no active s/s cardiac respiratory distress noticed at this time. Patient on room air, refused to wear radiation monitor at this time. Patient AOx1-2, Left AV shunt wrapped with Kerlix, IV on right FA 20g, asymptomatic, patent, intact. Bed in lowest position, side rails upx3, call light within reach, bed alarm on. Endorsed awaiting for admitting order from Dr. Trujillo. Will continue to monitor.
--- NOTE | 2019-04-17 08:09 | NUR ---
HAND-OFF: Report given to TERESA Swann. Endorsed that admitting orders had not been received despite multiple attempts to receive them.
--- NOTE | 2019-04-17 08:39 | NUR ---
NURSE NOTES: Spoke with nursing wash house supervisor Ms. Overton about no admitting orders for patient from Dr. Trujillo. Was transferred to another phone of Dr. Trujillo. Left voicemail. Awaiting callback.
--- NOTE | 2019-04-17 09:00 | NUR ---
NURSE NOTES: Patient refused hall monitor, change dressing to hospital gown, skin assessment at this time. Will continue to monitor.
--- NOTE | 2019-04-17 09:05 | NUR ---
NURSE NOTES: CN and awake overnight monitor made aware unable to find awake overnight monitor at the patient room which patient refused to wear during the night.
--- NOTE | 2019-04-17 11:00 | NUR ---
NURSE NOTES: Admitting MD changed from Dr. Trujillo to Dr. Gonzalez.
[2019-04-17] MEDS ORDERED: HydrALAZINE 25mg tab ORAL PRN (11:15)
--- NOTE | 2019-04-17 11:21 | History & Physical ---
History and Physical History & Physicial [id number] Reyes Gonzalez MD Apr 17, 2019 11:21
[2019-04-17 12:00] VITALS: BP 170/94
[2019-04-17] MEDS ORDERED: Metoprolol Tartrate 12.5mg TAB ORAL SCH (12:00)
--- NOTE | 2019-04-17 12:30 | NUR ---
NURSE NOTES: @12:02pm - Patient made attempt to go on elevator. Patient was made to return to room. Patient had street clothes on. Educated the patient to wear a patient gown/pants. Patient refused. @12:30pm- Patient was transferred to room 201-2, closer to nursing station. Had security ask the patient about heart monitor and changed to patient gown. Patient stated he threw the heart monitor in the trash and refused the patient gown. Nursing home energy consultant supervisor, Ms. Overton, was made aware. Endorsed to primary nurseHue.
[2019-04-17] MEDS: Nitroglycerin Patch 0.4mg TDERMAL SCH (12:47)
[2019-04-17] MEDS: Renvela 800mg Pkt ORAL SCH ×2 (12:47→17:48)
[2019-04-17] MEDS: Docusate 100mg cap ORAL SCH ×2 (12:47→17:48)
[2019-04-17] MEDS: Aspirin Baby 81mg ORAL SCH (12:48)
[2019-04-17 16:00] VITALS: BP 163/76
--- NOTE | 2019-04-17 16:15 | History and Physical Report ---
DATE OF ADMISSION: 04/16/2019 HISTORY OF PRESENT ILLNESS: I was asked by the nursing smoke jumper supervisor to evaluate the patient and take over the management as the patient who was admitted through emergency room under Dr. Trujillo has been declined to be seen by Dr. Trujillo and the patient has been here for over 10 hours without any orders. As it appears, the patient is a 63-year-old male, all the information was gotten through the loss control engineer from the patient. He does not know why he is in the hospital. He apparently is a dialysis patient, but does not know when was the last time he was dialyzed and does not know where he lives. According to the ER note, the patient was brought in by ambulance from assisted living for bleeding AV fistula. Apparently, the patient received dialysis yesterday, which was Thursday and when was in assisted living, they noted bleeding from the fistula over the left forearm and they send the patient to the emergency room and subsequently when Dr. Trujillo was contacted the physician was covering for him ordered the patient to be admitted; however, later on was not followed by Dr. Trujillo. PAST MEDICAL HISTORY: Significant for diabetes mellitus, hypertension, dementia, end-stage renal disease, on dialysis. MEDICATIONS: List of medications seen in the record. PHYSICAL EXAMINATION: GENERAL: At this point, the patient is not in any distress. VITAL SIGNS: Temperature 98.6, pulse rate 89, respiratory rate 20, and blood pressure 150/76. GENERAL: The patient does not know the name of the hospital, does not know his age, does not know where he lives, does not know when he was last dialyzed. HEENT: Head is normocephalic. Sclerae not icteric. NECK: Seems supple. LUNGS: Decreased breath sound over the bases. HEART: Regular. Over the left arm, there is a fistula that is not bleeding anymore. NEUROLOGIC: The patient appears to be nonfocal. LABORATORY RESULTS: Creatinine 3.9. Troponin 0.058. Albumin 3.4. Electrolytes are normal. Hemoglobin is 8.8. There is no other data available. IMPRESSION: 1. Bleeding from the dialysis shunt, which is now stopped. 2. End-stage renal disease. 3. Anemia related to end-stage renal disease. 4. Dementia. 5. Hypertension. 6. Diabetes mellitus. PLAN: At this point, the patient is demented and unsafe to leave. Troponin is slightly elevated and we do not have a new hemoglobin or CBC to assess the degree of his anemia. Plan would be to start the patient on diet and blood pressure medication. Keep the blood pressure in check. Monitor troponin and stool softener. Gastric support. Monitor the hemoglobin. According to how the patient's condition evolves, we will make the proper changes in our future management. Reyes Gonzalez M.D. DR: MARILOU JOB#: [id number] CC:
--- NOTE | 2019-04-17 19:32 | NUR ---
HAND-OFF: Report given to TERESA Bosch.
--- NOTE | 2019-04-17 19:33 | NUR ---
NURSE NOTES: Received report from Hue MOORE. Pt is sleeping in the bed. No acute distress noted. Bed rails are up x3. Bed alarm is on. Bed is locked at the lowest position. Endorsed by am nurse that pt tried to hide in other room. Endorsed by am shift that pt is refusing heart monitor. Currently not on heart monitor
[2019-04-17 20:00] VITALS: BP 134/71
[2019-04-17] MEDS: Metoprolol Tartrate 12.5mg TAB ORAL SCH (21:03)
[2019-04-17] MEDS: Tamsulosin 0.4mg cap ORAL SCH (21:03)
[2019-04-18] VITALS: BP 144/73
[2019-04-18 04:00] VITALS: BP 149/74
--- NOTE | 2019-04-18 07:17 | NUR ---
HAND-OFF: Report given to Hue MOORE.
--- NOTE | 2019-04-18 07:18 | NUR ---
NURSE NOTES: Received report from TERESA Bosch. Patient in bed resting, no active s/s cardiac, respiratory distress noticed at this time. Patient on room air, AOx1-2, confused. Patient refused to dress up to hospital gown, to wear pvc monitor, and to skin assessment. IV on right FA 20G, asymptomatic, patent, intact. AV shunt on left FA, present bruit and thrill at this time. Endorsed MD aware of Hgb, troponin level from yesterday. Bed in lowest position, patient educated no to leave the room without notifying staff members, bed alarm on, call light within reach. Will continue to monitor.
[2019-04-18 08:00] VITALS: BP 165/70
[2019-04-18] MEDS: Metoprolol Tartrate 12.5mg TAB ORAL SCH ×2 (08:39→21:00)
[2019-04-18] MEDS: Docusate 100mg cap ORAL SCH ×3 (08:39→17:19)
[2019-04-18] MEDS: Renvela 800mg Pkt ORAL SCH ×3 (08:40→17:19)
[2019-04-18] MEDS: Aspirin Baby 81mg ORAL SCH (08:40)
--- NOTE | 2019-04-18 09:50 | NUR ---
*-* INSURANCE *-* ALL AVAILABLE CLINICALS HAVE BEEN FAXED TO: [facility] P- [phone] F- [phone]...REVIEW/CLINICAL
--- NOTE | 2019-04-18 10:00 | NUR ---
NURSE NOTES: Dr. Gonzalez at the nursing station made aware patient refused lab and tele box. No order given at this time.
[2019-04-18 10:37] LABS: HEMATOCRIT 22.4 % (42.0-52.0); HEMOGLOBIN 7.4 G/DL (14.2-18.0); MEAN CORPUSCULAR VOLUME 97 FL (80-99); PLATELET COUNT 91 K/UL (150-450); RED BLOOD COUNT 2.31 M/UL (4.70-6.10); WHITE BLOOD COUNT 4.4 K/UL (4.8-10.8)
--- NOTE | 2019-04-18 10:55 | Consultation ---
History of Present Illness General Date patient seen: Apr 17, 2019 Reason for Hospitalization: General Complaint Present Illness HPI Late entry for patient was seen on 04/17/2019 as initial visit and consultation. This is a 63-year-old male who presented to [facility] emergency department for evaluation of bleeding from left arm fistula. Patient had dialysis earlier and noted to have persistent bleeding from the fistula. I was called by the emergency department for assistance at which time recommended Surgicel gentle pressure and evaluation for hemostasis and a short time interval time period. Patient was admitted for care and management. Mild anemia. Labs noted. Patient seen and examined at bedside. Fortunately with above recommendations hemostasis had been obtained. Allergies: Coded Allergies: No Known Allergies (Unverified , 10/29/18) Medication History Scheduled Amlodipine Besylate (Norvasc), 10 MG ORAL DAILY, (Reported) Calcitriol (Calcitriol), 0.25 MCG PO DAILY, (Reported) Carvedilol (Coreg), 25 MG ORAL EVERY 12 HOURS, (Reported) Doxazosin Mesylate (Doxazosin Mesylate), 2 MG ORAL DAILY, (Reported) Ergocalciferol (Vitamin D2) (Vitamin D2), 50,000 UNIT PO Q7DAYS, (Reported) Hydralazine HCl (Hydralazine HCl), 75 MG PO TID, (Reported) Isosorbide Dinitrate (Isosorbide Dinitrate), 10 MG PO TID, (Reported) Losartan Potassium (Losartan Potassium), 100 MG ORAL DAILY, (Reported) Quetiapine Fumarate (Seroquel), 50 MG ORAL THREE TIMES A DAY, (Reported) Sevelamer Carbonate* (Renvela*), 800 MG ORAL THREE TIMES A DAY, (Reported) Discontinued Medications Amlodipine Besylate (Norvasc), 5 MG ORAL DAILY, (Reported) Discontinued Reason: Medication dose changed Calcitriol (Calcitriol), 0.25 MCG PO DAILY, (Reported) Discontinued Reason: Therapy completed Carvedilol (Coreg), 12.5 MG ORAL EVERY 12 HOURS, (Reported) Discontinued Reason: Medication dose changed Clonidine HCl (Catapres-Tts 2), 1 PATCH TDERMAL QWEEK Discontinued Reason: Pt stopped taking med Doxazosin Mesylate (Doxazosin Mesylate), 1 MG ORAL DAILY, (Reported) Discontinued Reason: Medication dose changed Losartan Potassium (Losartan Potassium), 50 MG ORAL DAILY, (Reported) Discontinued Reason: Medication dose changed Quetiapine Fumarate* (Seroquel*), 25 MG ORAL EVERY 8 HOURS Discontinued Reason: Medication dose changed Sevelamer Carbonate (Renvela), 800 MG ORAL THREE TIMES A DAY, (Reported) Discontinued Reason: Medication dose changed Sevelamer Carbonate (Renvela), 800 MG ORAL BID, (Reported) Discontinued Reason: Therapy completed Sevelamer Carbonate* (Renvela*), 800 MG ORAL THREE TIMES A DAY, (Reported) Discontinued Reason: Medication dose changed Patient History Limited by: age, medical condition History Provided By: Patient, Medical Record, PMD Healthcare decision maker Resuscitation status Full Code Advanced Directive on File Past Medical/Surgical History Past Medical/Surgical History: (1) Hypothyroid (2) Anemia (3) Dementia (4) ESRD (end stage renal disease) on dialysis (5) Bleeding from dialysis shunt Review of Systems Review of Symptoms General ROS: no weight loss or fever Psychological ROS: no depression or mood changes, no memory loss Ophthalmic ROS: no visual changes or eye irritation ENT ROS: no nasal congestion, hearing loss, dizziness Allergy and Immunology ROS: no allergic symptoms or urticaria Hematological and Lymphatic ROS: no swollen glands, unusual bleeding or bruising Endocrine ROS: no polyuria, polydipsia, weight changes, temperature intolerance Respiratory ROS: no cough, shortness of breath, or wheezing Cardiovascular ROS: no chest pain or dyspnea on exertion Gastrointestinal ROS: denies abdominal pain, bright red blood in stool. Musculoskeletal ROS: no myalgias or arthralgias Neurological ROS: no TIA or stroke symptoms Dermatological ROS: no new or changing skin lesions, rashes or pruritis Physical Exam Physical Exam General appearance: alert, cooperative, no distress, appears stated age Head: Normocephalic, without obvious abnormality, atraumatic Eyes: conjunctivae/corneas clear. PERRL, EOM's intact. Fundi benign Throat: Lips, mucosa, and tongue normal. Teeth and gums normal Neck: supple, symmetrical, trachea midline, no adenopathy, thyroid: not enlarged, symmetric, no tenderness/mass/nodules, no carotid bruit and no JVD Lungs: clear to auscultation bilaterally Heart: regular rate and rhythm, S1, S2 normal, no murmur, click, rub or gallop Abdomen: soft, non-tender. Bowel sounds normal. No masses, no organomegaly Extremities: extremities normal, atraumatic, no cyanosis or edema left forearm fistula without bleeding pseudoaneurysms noted Pulses: 2+ and symmetric Skin: Skin color, texture, turgor normal. No rashes or lesions Neurologic: Grossly normal Last 24 Hour Vital Signs Date Time Temp Pulse Resp B/P (MAP) Pulse Ox O2 Delivery O2 Flow Rate FiO2 04/18/19 09:00 Room Air 04/18/19 08:40 62 165/70 04/18/19 08:39 62 165/70 04/18/19 08:00 97.2 62 18 165/70 (101) 98 04/18/19 04:00 97.6 63 18 149/74 (99) 99 04/18/19 00:00 97.8 65 18 144/73 (96) 100 04/17/19 21:03 67 134/71 04/17/19 21:00 Room Air 04/17/19 20:00 97.7 55 18 134/71 (92) 98 04/17/19 16:00 97.7 56 18 163/76 (105) 95 04/17/19 12:47 57 170/94 04/17/19 12:47 170/94 04/17/19 12:00 97.4 57 18 170/94 (119) 98 04/17/19 12:00 57 170/94 Intake and Output 04/17/19 04/18/19 19:00 07:00 Intake Total 480 ml Balance 480 ml Intake Oral 480 ml Laboratory Tests Test 04/18/19 10:15 White Blood Count 4.4 K/UL (4.8-10.8) L Red Blood Count 2.31 M/UL (4.70-6.10) L Hemoglobin 7.4 G/DL (14.2-18.0) L Hematocrit 22.4 % (42.0-52.0) L Mean Corpuscular Volume 97 FL (80-99) Mean Corpuscular Hemoglobin 31.9 PG (27.0-31.0) H Mean Corpuscular Hemoglobin Concent 32.9 G/DL (32.0-36.0) Red Cell Distribution Width 15.0 % (11.6-14.8) H Platelet Count 91 K/UL (150-450) L Mean Platelet Volume 6.9 FL (6.5-10.1) Neutrophils (%) (Auto) % (45.0-75.0) Lymphocytes (%) (Auto) % (20.0-45.0) Monocytes (%) (Auto) % (1.0-10.0) Eosinophils (%) (Auto) % (0.0-3.0) Basophils (%) (Auto) % (0.0-2.0) Neutrophils % (Manual) Pending Lymphocytes % (Manual) Pending Platelet Estimate Pending Platelet Morphology Pending Sodium Level Pending Potassium Level Pending Chloride Level Pending Carbon Dioxide Level Pending Blood Urea Nitrogen Pending Creatinine Pending Estimat Glomerular Filtration Rate Pending Glucose Level Pending Hemoglobin A1c 5.4 % (4.3-6.0) Uric Acid Pending Calcium Level Pending Phosphorus Level Pending Magnesium Level Pending Iron Level Pending Unsaturated Iron Binding Pending Ferritin Pending Total Bilirubin Pending Gamma Glutamyl Transpeptidase Pending Aspartate Amino Transf (AST/SGOT) Pending Alanine Aminotransferase (ALT/SGPT) Pending Alkaline Phosphatase Pending Troponin I Pending C-Reactive Protein, Quantitative Pending Pro-B-Type Natriuretic Peptide Pending Total Protein Pending Albumin Pending Globulin Pending Vitamin B12 Level Pending Folate Pending Thyroid Stimulating Hormone (TSH) Pending Height (Feet): 5 Height (Inches): 9.00 Weight (Pounds): 198 Medications Current Medications Medications (Trade) Dose Ordered Sig/Cynthia Route PRN Reason Start Time Stop Time Status Last Admin Dose Admin Acetaminophen (Tylenol) 650 mg Q4H PRN ORAL Mild Pain/Temp > 100.5 04/17/19 11:15 05/17/19 11:14 Amlodipine Besylate (Norvasc) 10 mg DAILY ORAL 04/17/19 12:00 05/17/19 11:59 04/18/19 08:40 Aspirin (ASA) 81 mg DAILY ORAL 04/17/19 12:00 05/17/19 11:59 04/18/19 08:40 Docusate Sodium (Colace) 100 mg THREE TIMES A DAY ORAL 04/17/19 13:00 05/17/19 12:59 04/18/19 08:39 Hydralazine HCl (Apresoline) 25 mg Q4H PRN ORAL bp over 160 syst 04/17/19 11:15 05/17/19 11:14 Metoprolol Tartrate (Lopressor) 12.5 mg Q12HR ORAL 04/17/19 21:00 05/17/19 20:59 04/18/19 08:39 Nitroglycerin (Ntg) 1 patch Q24H TDERMAL 04/17/19 12:00 05/17/19 11:59 04/17/19 12:47 Pantoprazole (Protonix) 40 mg EVERY 12 HOURS ORAL 04/17/19 21:00 05/17/19 20:59 04/18/19 08:40 Quetiapine Fumarate (SEROquel) 25 mg Q8HR ORAL 04/17/19 14:00 05/17/19 13:59 04/18/19 05:32 Sevelamer Carbonate (Renvela) 800 mg THREE TIMES A DAY ORAL 04/17/19 13:00 05/17/19 12:59 04/18/19 08:40 Tamsulosin HCl (Flomax) 0.4 mg BEDTIME ORAL 04/17/19 21:00 05/17/19 20:59 04/17/19 21:03 Assessment/Plan Problem List: (1) Bleeding from dialysis shunt Assessment & Plan: This is a 63-year-old male with bleeding from left forearm dialysis shunt after dialysis this weekend. Fortunately with nonoperative conservative management hemostasis obtained with gentle pressure and Surgicel. Evaluated on 2 separate occasions including yesterday morning and today and hemostasis continues. We will plan for dialysis as per nephrology. Follow-up with primary vascular surgeon as outpatient. Thank you for allowing me to participate in patient's care. ICD Codes: T82.838A - Hemorrhage due to vascular prosthetic devices, implants and grafts, initial encounter SNOMED: [id number] Qualifiers: Qualified Codes: T82.838A - Hemorrhage due to vascular prosthetic devices, implants and grafts, initial encounter Nolberto Quinones Apr 18, 2019 10:55
--- NOTE | 2019-04-18 10:56 | Surgery Progress Note ---
Surgery Progress Note Subjective Additional Comments Patient seen and examined bedside. No acute events. Comfortable. Labs noted. Exam stable. Hemostasis noted. Objective Last 24 Hour Vital Signs Date Time Temp Pulse Resp B/P (MAP) Pulse Ox O2 Delivery O2 Flow Rate FiO2 04/18/19 09:00 Room Air 04/18/19 08:40 62 165/70 04/18/19 08:39 62 165/70 04/18/19 08:00 97.2 62 18 165/70 (101) 98 04/18/19 04:00 97.6 63 18 149/74 (99) 99 04/18/19 00:00 97.8 65 18 144/73 (96) 100 04/17/19 21:03 67 134/71 04/17/19 21:00 Room Air 04/17/19 20:00 97.7 55 18 134/71 (92) 98 04/17/19 16:00 97.7 56 18 163/76 (105) 95 04/17/19 12:47 57 170/94 04/17/19 12:47 170/94 04/17/19 12:00 97.4 57 18 170/94 (119) 98 04/17/19 12:00 57 170/94 I&O Intake and Output 04/17/19 04/18/19 19:00 07:00 Intake Total 480 ml Balance 480 ml Intake Oral 480 ml Dressing: dry Wound: clean Cardiovascular: RSR Respiratory: clear Abdomen: soft, flat Extremities: no edema, no tenderness, no cyanosis, other - Fistula pseudoaneurysm noted Laboratory Tests Test 04/18/19 10:15 White Blood Count 4.4 K/UL (4.8-10.8) L Red Blood Count 2.31 M/UL (4.70-6.10) L Hemoglobin 7.4 G/DL (14.2-18.0) L Hematocrit 22.4 % (42.0-52.0) L Mean Corpuscular Volume 97 FL (80-99) Mean Corpuscular Hemoglobin 31.9 PG (27.0-31.0) H Mean Corpuscular Hemoglobin Concent 32.9 G/DL (32.0-36.0) Red Cell Distribution Width 15.0 % (11.6-14.8) H Platelet Count 91 K/UL (150-450) L Mean Platelet Volume 6.9 FL (6.5-10.1) Neutrophils (%) (Auto) % (45.0-75.0) Lymphocytes (%) (Auto) % (20.0-45.0) Monocytes (%) (Auto) % (1.0-10.0) Eosinophils (%) (Auto) % (0.0-3.0) Basophils (%) (Auto) % (0.0-2.0) Neutrophils % (Manual) Pending Lymphocytes % (Manual) Pending Platelet Estimate Pending Platelet Morphology Pending Sodium Level Pending Potassium Level Pending Chloride Level Pending Carbon Dioxide Level Pending Blood Urea Nitrogen Pending Creatinine Pending Estimat Glomerular Filtration Rate Pending Glucose Level Pending Hemoglobin A1c 5.4 % (4.3-6.0) Uric Acid Pending Calcium Level Pending Phosphorus Level Pending Magnesium Level Pending Iron Level Pending Unsaturated Iron Binding Pending Ferritin Pending Total Bilirubin Pending Gamma Glutamyl Transpeptidase Pending Aspartate Amino Transf (AST/SGOT) Pending Alanine Aminotransferase (ALT/SGPT) Pending Alkaline Phosphatase Pending Troponin I Pending C-Reactive Protein, Quantitative Pending Pro-B-Type Natriuretic Peptide Pending Total Protein Pending Albumin Pending Globulin Pending Vitamin B12 Level Pending Folate Pending Thyroid Stimulating Hormone (TSH) Pending Plan Problems: (1) Bleeding from dialysis shunt Assessment & Plan: This is a 63-year-old male with bleeding from left forearm dialysis shunt after dialysis this weekend. Fortunately with nonoperative conservative management hemostasis obtained with gentle pressure and Surgicel. Evaluated on 2 separate occasions including yesterday morning and today and hemostasis continues. We will plan for dialysis as per nephrology. Follow-up with primary vascular surgeon as outpatient. Thank you for allowing me to participate in patient's care. Okay for discharge planning from surgical standpoint Outpatient follow-up Monitor for bleeding after each dialysis Thank you for allowing me to participate in patient's care Nolberto Quinones Apr 18, 2019 10:56
[2019-04-18 11:03] LABS: ALANINE AMINOTRANSFERASE 25 U/L (12-78); ALBUMIN 2.8 G/DL (3.4-5.0); ALBUMIN/GLOBULIN RATIO 0.7 (1.0-2.7); ALKALINE PHOSPHATASE 120 U/L (46-116); ANION GAP 5 mmol/L (5-15); ASPARTATE AMINO TRANSFERASE 19 U/L (15-37); BILIRUBIN,TOTAL 0.7 MG/DL (0.2-1.0); BLOOD UREA NITROGEN 48 mg/dL (7-18); CALCIUM 7.9 MG/DL (8.5-10.1); CARBON DIOXIDE 33 MMOL/L (21-32); CHLORIDE 99 MMOL/L (98-107); CREATININE 6.2 MG/DL (0.55-1.30); FERRITIN 854 NG/ML (8-388); GAMMA GLUTAMYL TRANSPEPTIDASE 103 U/L (5-85); PHOSPHORUS 4.8 MG/DL (2.5-4.9); POTASSIUM 4.8 MMOL/L (3.5-5.1); SODIUM 137 MMOL/L (136-145)
--- NOTE | 2019-04-18 11:06 | Nephrology Progress Note ---
Assessment/Plan Problem List: (1) ESRD (end stage renal disease) on dialysis (2) Anemia (3) Dementia (4) Bleeding from dialysis shunt (5) Hypothyroid (6) Elevated troponin Assessment 1. Bleeding from the dialysis shunt, which is now stopped. 2. End-stage renal disease. 3. Anemia related to end-stage renal disease. 4. Dementia. 5. Hypertension. 6. Diabetes mellitus. 7. Elevated troponin Plan keep BP in check transfuse as needed monitor troponin Subjective ROS Limited/Unobtainable: No Constitutional: Reports: malaise Objective Objective Last 24 Hour Vital Signs Date Time Temp Pulse Resp B/P (MAP) Pulse Ox O2 Delivery O2 Flow Rate FiO2 04/18/19 09:00 Room Air 04/18/19 08:40 62 165/70 04/18/19 08:39 62 165/70 04/18/19 08:00 97.2 62 18 165/70 (101) 98 04/18/19 04:00 97.6 63 18 149/74 (99) 99 04/18/19 00:00 97.8 65 18 144/73 (96) 100 04/17/19 21:03 67 134/71 04/17/19 21:00 Room Air 04/17/19 20:00 97.7 55 18 134/71 (92) 98 04/17/19 16:00 97.7 56 18 163/76 (105) 95 04/17/19 12:47 57 170/94 04/17/19 12:47 170/94 04/17/19 12:00 97.4 57 18 170/94 (119) 98 04/17/19 12:00 57 170/94 Intake and Output 04/17/19 04/18/19 19:00 07:00 Intake Total 480 ml Balance 480 ml Intake Oral 480 ml Laboratory Tests 04/18/19 10:15: White Blood Count 4.4L, Red Blood Count 2.31L, Hemoglobin 7.4L, Hematocrit 22.4L , Mean Corpuscular Volume 97, Mean Corpuscular Hemoglobin 31.9H, Mean Corpuscular Hemoglobin Concent 32.9, Red Cell Distribution Width 15.0H, Platelet Count 91L, Mean Platelet Volume 6.9, Neutrophils (%) (Auto) , Lymphocytes (%) (Auto) , Monocytes (%) (Auto) , Eosinophils (%) (Auto) , Basophils (%) (Auto) , Neutrophils % (Manual) [Pending], Lymphocytes % (Manual) [Pending], Platelet Estimate [Pending], Platelet Morphology [Pending], Sodium Level 137, Potassium Level 4.8, Chloride Level 99, Carbon Dioxide Level 33H, Anion Gap 5, Blood Urea Nitrogen 48H, Creatinine 6.2H, Estimat Glomerular Filtration Rate 9.2, Glucose Level 111H, Hemoglobin A1c 5.4, Uric Acid 5.0, Calcium Level 7.9L, Phosphorus Level 4.8, Magnesium Level 2.1, Iron Level [ Pending], Unsaturated Iron Binding [Pending], Ferritin 854H, Total Bilirubin 0.7 , Gamma Glutamyl Transpeptidase 103H, Aspartate Amino Transf (AST/SGOT) 19, Alanine Aminotransferase (ALT/SGPT) 25, Alkaline Phosphatase 120H, Troponin I 0.919H, C-Reactive Protein, Quantitative 1.3H, Pro-B-Type Natriuretic Peptide > 62334F, Total Protein 6.7, Albumin 2.8L, Globulin 3.9, Albumin/Globulin Ratio 0.7L, Vitamin B12 Level [Pending], Folate [Pending], Thyroid Stimulating Hormone (TSH) 10.277H Height (Feet): 5 Height (Inches): 9.00 Weight (Pounds): 198 General Appearance: no apparent distress Cardiovascular: normal rate Abdomen: soft Extremities: other - no further bleeding from graft Objective no change Reyes Gonzalez MD Apr 18, 2019 11:06
--- NOTE | 2019-04-18 11:08 | NUR ---
NURSE NOTES: Dr. Gonzalez made aware of troponin level of 0.919 today, no order given at this time. Will continue to monitor.
[2019-04-18 11:20] LABS: % IRON SATURATION 48 % (15-50); IRON 88 ug/dL (50-175); TOTAL IRON BINDING CAPACITY 184 ug/dL (250-450)
--- NOTE | 2019-04-18 11:41 | NUR ---
Social Service Note GWENDOLYN spoke with Tr at [facility] [phone] and confirmed patient may return at anytime. Nursing to call facility once ambulance is arranged with pick up man time. SAUL and Dr. Smith notified. Patient with no known family. Patient was referred to [facility] via [facility] program called [facility]. Patient with a history of homelessness. Patient with a history of Dementia.
[2019-04-18 12:00] VITALS: BP 150/77
[2019-04-18] MEDS: Nitroglycerin Patch 0.4mg TDERMAL SCH (12:38)
[2019-04-18] MEDS: Lisinopril 10mg tab ORAL SCH (12:39)
[2019-04-18] MEDS: Imdur 30mg tab ORAL SCH (12:39)
--- NOTE | 2019-04-18 12:44 | NUR ---
NURSE NOTES: Patient tried to remove nitroglycerin patch, patient educated not to remove, risk and benefit explained.
--- NOTE | 2019-04-18 13:56 | Cardiology Report ---
APPROVED REPORT EKG Measurement Heart [id number] Sinus rhythm with 1st degree AV block Cannot rule out Anterior infarct, age undetermined Abnormal ECG
[2019-04-18] MEDS: HydrALAZINE 25mg tab ORAL SCH ×2 (14:20→21:51)
--- NOTE | 2019-04-18 17:05 | NUR ---
CASE MANAGEMENT:REVIEW 63 YR OLD MALE BIBA FROM [facility] CC: BLEEDING LT FOREARM SHUNT PMH: ESRD ON HD TTS SI: ANEMIA. BLEEDING SHUNT 98.5 68 18 166/82 95% ON RA WBC-3.7 H/H-8.8/26.5 CO2+35 BUN+21 CR+3.9 TROPONIN(+)0.058 IS: TYPE & SCREEN CHEST XRAY : TO TELEMETRY PLAN: SURGICAL CONSULT PRESSURE TO SITE 04/18/19 SI: ANEMIA. BLEEDING SHUNT 97.0 64 20 150/77 96% ON RA H/H-7.4/22.4 PLT-91 BUN+48 CR+6.2 CA-7.9 TROPONIN(+) 0.919 IS: HYDRALAZINE PO Q8HRS LISINOPRIL PO QD IMDUR PO QD PROTONIX PO QD LOPRESSOR PO Q12 FLOMAX PO QHS SEROQUEL PO Q8HR ASA PO QD : TELEMETRY STATUS DCP: RETURN TO [facility]
--- NOTE | 2019-04-18 19:22 | NUR ---
HAND-OFF: Report given to TERESA Martin.
--- NOTE | 2019-04-18 19:25 | NUR ---
NURSE NOTES: Received patient from TERESA Swann. Patient asleep in bed. No signs of distress or pain noted. Patient able to make needs known and ambulatory with assistance. IV site checked, patent and intact, no signs of erythema, bleeding, or infiltration. Patient refused skin assessment, previous nurse noted abrasions on left forearm. Bed in lowest position, brakes on, siderails up x2, and call light within reach. Will continue to monitor.
--- NOTE | 2019-04-18 20:57 | Cardiology Progress Note ---
Assessment/Plan Assessment/Plan fistual beedign abn trop likey relate to demand and renal insuf cri on hd abnormal trop echo ekg serial enzyme i suspect renal clarance related full note to follow [id number] Objective Last 24 Hour Vital Signs Date Time Temp Pulse Resp B/P (MAP) Pulse Ox O2 Delivery O2 Flow Rate FiO2 04/18/19 14:20 150/77 04/18/19 12:39 150/77 04/18/19 12:39 150/77 04/18/19 12:38 150/77 04/18/19 12:00 97.0 64 20 150/77 (101) 96 04/18/19 09:00 Room Air 04/18/19 08:40 62 165/70 04/18/19 08:39 62 165/70 04/18/19 08:00 97.2 62 18 165/70 (101) 98 04/18/19 04:00 97.6 63 18 149/74 (99) 99 04/18/19 00:00 97.8 65 18 144/73 (96) 100 04/17/19 21:03 67 134/71 04/17/19 21:00 Room Air Intake and Output 04/17/19 04/18/19 19:00 07:00 Intake Total 480 ml Balance 480 ml Intake Oral 480 ml Laboratory Tests Test 04/18/19 10:15 White Blood Count 4.4 K/UL (4.8-10.8) L Red Blood Count 2.31 M/UL (4.70-6.10) L Hemoglobin 7.4 G/DL (14.2-18.0) L Hematocrit 22.4 % (42.0-52.0) L Mean Corpuscular Volume 97 FL (80-99) Mean Corpuscular Hemoglobin 31.9 PG (27.0-31.0) H Mean Corpuscular Hemoglobin Concent 32.9 G/DL (32.0-36.0) Red Cell Distribution Width 15.0 % (11.6-14.8) H Platelet Count 91 K/UL (150-450) L Mean Platelet Volume 6.9 FL (6.5-10.1) Neutrophils (%) (Auto) % (45.0-75.0) Lymphocytes (%) (Auto) % (20.0-45.0) Monocytes (%) (Auto) % (1.0-10.0) Eosinophils (%) (Auto) % (0.0-3.0) Basophils (%) (Auto) % (0.0-2.0) Differential Total Cells Counted 100 Neutrophils % (Manual) 60 % (45-75) Lymphocytes % (Manual) 19 % (20-45) L Monocytes % (Manual) 17 % (1-10) H Eosinophils % (Manual) 3 % (0-3) Basophils % (Manual) 1 % (0-2) Band Neutrophils 0 % (0-8) Platelet Estimate Decreased L Platelet Morphology Normal Hypochromasia 1+ Anisocytosis 1+ Sodium Level 137 MMOL/L (136-145) Potassium Level 4.8 MMOL/L (3.5-5.1) Chloride Level 99 MMOL/L (98-107) Carbon Dioxide Level 33 MMOL/L (21-32) H Anion Gap 5 mmol/L (5-15) Blood Urea Nitrogen 48 mg/dL (7-18) H Creatinine 6.2 MG/DL (0.55-1.30) H Estimat Glomerular Filtration Rate 9.2 mL/min (>60) Glucose Level 111 MG/DL (74-106) H Hemoglobin A1c 5.4 % (4.3-6.0) Uric Acid 5.0 MG/DL (2.6-7.2) Calcium Level 7.9 MG/DL (8.5-10.1) L Phosphorus Level 4.8 MG/DL (2.5-4.9) Magnesium Level 2.1 MG/DL (1.8-2.4) Iron Level 88 ug/dL (50-175) Total Iron Binding Capacity 184 ug/dL (250-450) L Percent Iron Saturation 48 % (15-50) Unsaturated Iron Binding 96 ug/dL (112-346) L Ferritin 854 NG/ML (8-388) H Total Bilirubin 0.7 MG/DL (0.2-1.0) Gamma Glutamyl Transpeptidase 103 U/L (5-85) H Aspartate Amino Transf (AST/SGOT) 19 U/L (15-37) Alanine Aminotransferase (ALT/SGPT) 25 U/L (12-78) Alkaline Phosphatase 120 U/L (46-116) H Troponin I 0.919 ng/mL (0.000-0.056) C-Reactive Protein, Quantitative 1.3 mg/dL (0.00-0.90) H Pro-B-Type Natriuretic Peptide > 88677 pg/mL (0-125) H Total Protein 6.7 G/DL (6.4-8.2) Albumin 2.8 G/DL (3.4-5.0) L Globulin 3.9 g/dL Albumin/Globulin Ratio 0.7 (1.0-2.7) L Vitamin B12 Level 915 PG/ML (193-986) Folate 8.1 NG/ML (8.6-58.9) L Thyroid Stimulating Hormone (TSH) 10.277 uiU/mL (0.358-3.740) William Jung MD Apr 18, 2019 20:57
[2019-04-18] MEDS: Tamsulosin 0.4mg cap ORAL SCH (21:00)
--- NOTE | 2019-04-18 21:45 | NUR ---
NURSE NOTES: Patient refused vital signs three times, asked by RECLAMATION ENGINEER, nurse, and charge nurse. Patient refused night time medications. Patient refused night time shift assessment. Will continue to monitor.
[2019-04-18 22:40] VITALS: BP 148/80
[2019-04-19] VITALS: BP 143/82
--- NOTE | 2019-04-19 05:34 | NUR ---
NURSE NOTES: Patient refused morning lab draws from frame builder. Patient refused EKG from nurse twice. Patient refused 4 AM vital signs. Will continue to monitor.
[2019-04-19] MEDS: HydrALAZINE 25mg tab ORAL SCH ×3 (06:00→21:14)
--- NOTE | 2019-04-19 07:30 | NUR ---
HAND-OFF: Report given to TERESA Schrader. Plan of care endorsed.
--- NOTE | 2019-04-19 08:14 | NUR ---
NURSE NOTES: pt at the edge of the bed having breakfast. Refusing labs and cardiac monitoring and vital signs. No respiratory distress noted at this time. Call light next to pt. Bed is in lowest position. Will continue to monitor pt.
[2019-04-19 10:27] VITALS: BP 154/79
[2019-04-19] MEDS: Imdur 30mg tab ORAL SCH (10:38)
[2019-04-19] MEDS: Lisinopril 10mg tab ORAL SCH (10:38)
[2019-04-19] MEDS: Renvela 800mg Pkt ORAL SCH ×3 (10:38→19:01)
[2019-04-19] MEDS: Aspirin Baby 81mg ORAL SCH (10:38)
[2019-04-19] MEDS: Docusate 100mg cap ORAL SCH ×3 (10:38→19:01)
[2019-04-19] MEDS: Metoprolol Tartrate 12.5mg TAB ORAL SCH ×2 (10:39→20:48)
--- NOTE | 2019-04-19 11:31 | NUR ---
CASE MANAGEMENT:REVIEW 04/19/19 SI: BLEEDING FROM DIALYSIS SHUNT ELEVATED TROPONIN 97.5 64 18 154/79 96% ON RA LAST TROPONIN(+) 0.919 IS: HYDRALAZINE PO Q8HRS LISINOPRIL PO QD IMDUR PO QD PROTONIX PO QD LOPRESSOR PO Q12 FLOMAX PO QHS SEROQUEL PO Q8HR ASA PO QD : TELEMETRY STATUS DCP: FROM [facility]
--- NOTE | 2019-04-19 11:53 | Surgery Progress Note ---
Surgery Progress Note Subjective Symptoms: improved, pain absent, tolerating diet, voiding well, passing flatus Objective Last 24 Hour Vital Signs Date Time Temp Pulse Resp B/P (MAP) Pulse Ox O2 Delivery O2 Flow Rate FiO2 04/19/19 10:39 64 154/79 04/19/19 10:39 64 154/79 04/19/19 10:38 154/79 04/19/19 10:38 154/79 04/19/19 10:27 97.5 64 18 154/79 (104) 96 04/19/19 09:00 Room Air 04/19/19 00:00 96.3 63 18 143/82 (102) 96 04/18/19 22:40 148/80 (102) 04/18/19 21:00 Room Air 04/18/19 14:20 150/77 04/18/19 12:39 150/77 04/18/19 12:39 150/77 04/18/19 12:38 150/77 04/18/19 12:00 97.0 64 20 150/77 (101) 96 I&O Intake and Output 04/18/19 04/19/19 19:00 07:00 Intake Total 360 ml 360 ml Balance 360 ml 360 ml Intake Oral 360 ml 360 ml # Voids 2 Dressing: dry Wound: clean Cardiovascular: RSR Respiratory: clear Abdomen: soft, flat, present bowel sounds, non-distended Extremities: edema, no tenderness, no cyanosis Plan Problems: (1) Bleeding from dialysis shunt Assessment & Plan: This is a 63-year-old male with bleeding from left forearm dialysis shunt after dialysis this weekend. Fortunately with nonoperative conservative management hemostasis obtained with gentle pressure and Surgicel. Evaluated on 2 separate occasions including yesterday morning and today and hemostasis continues. We will plan for dialysis as per nephrology. Follow-up with primary vascular surgeon as outpatient. Thank you for allowing me to participate in patient's care. Okay for discharge planning from surgical standpoint Outpatient follow-up Monitor for bleeding after each dialysis labs noted Thank you for allowing me to participate in patient's care Nolberto Quinones Apr 19, 2019 11:53
[2019-04-19 12:00] VITALS: BP 161/72
[2019-04-19] MEDS: Nitroglycerin Patch 0.4mg TDERMAL SCH (12:00)
--- NOTE | 2019-04-19 12:09 | NUR ---
*-* INSURANCE *-* ALL AVAILABLE CLINICALS HAVE BEEN FAXED TO: MANU[facility] [employer]AS[facility] P- [phone] F- [phone]...REVIEW/CLINICAL
--- NOTE | 2019-04-19 13:11 | Nephrology Progress Note ---
Assessment/Plan Problem List: (1) ESRD (end stage renal disease) on dialysis (2) Anemia (3) Dementia (4) Bleeding from dialysis shunt (5) Hypothyroid (6) Elevated troponin Assessment 1. Bleeding from the dialysis shunt, which is now stopped. 2. End-stage renal disease. 3. Anemia related to end-stage renal disease. 4. Dementia. 5. Hypertension. 6. Diabetes mellitus. 7. Elevated troponin Plan HD today keep BP in check transfuse as needed monitor troponin cardio eval Subjective ROS Limited/Unobtainable: No Objective Objective Last 24 Hour Vital Signs Date Time Temp Pulse Resp B/P (MAP) Pulse Ox O2 Delivery O2 Flow Rate FiO2 04/19/19 10:39 64 154/79 04/19/19 10:39 64 154/79 04/19/19 10:38 154/79 04/19/19 10:38 154/79 04/19/19 10:27 97.5 64 18 154/79 (104) 96 04/19/19 09:00 Room Air 04/19/19 00:00 96.3 63 18 143/82 (102) 96 04/18/19 22:40 148/80 (102) 04/18/19 21:00 Room Air 04/18/19 14:20 150/77 Intake and Output 04/18/19 04/19/19 19:00 07:00 Intake Total 360 ml 360 ml Balance 360 ml 360 ml Intake Oral 360 ml 360 ml # Voids 2 Height (Feet): 5 Height (Inches): 9.00 Weight (Pounds): 200 General Appearance: no apparent distress, confused Cardiovascular: normal rate Respiratory/Chest: decreased breath sounds Abdomen: soft Objective no change Reyes Gonzalez MD Apr 19, 2019 13:11
--- NOTE | 2019-04-19 15:27 | Cardiology Progress Note ---
Assessment/Plan Assessment/Plan fistula bleeding abn trop likey relate to demand and renal insuf cri on hd anemai thrombocytopenia dementia reported non ambulatory status per facility documentation bleedign has resolved is tolerating dialysis now echo to be reviewed ekg he refused tele he refused serial enzyme i suspect renal clearance related repeat trop just drawn on dialysis seem poor historian denies any all sx refuses some care Subjective Cardiovascular: Denies: chest pain, lightheadedness, palpitations Respiratory: Denies: shortness of breath Gastrointestinal/Abdominal: Denies: abdominal pain Objective Last 24 Hour Vital Signs Date Time Temp Pulse Resp B/P (MAP) Pulse Ox O2 Delivery O2 Flow Rate FiO2 04/19/19 12:00 97.7 62 20 161/72 (101) 98 04/19/19 10:39 64 154/79 04/19/19 10:39 64 154/79 04/19/19 10:38 154/79 04/19/19 10:38 154/79 04/19/19 10:27 97.5 64 18 154/79 (104) 96 04/19/19 09:00 Room Air 04/19/19 00:00 96.3 63 18 143/82 (102) 96 04/18/19 22:40 148/80 (102) 04/18/19 21:00 Room Air General Appearance: no apparent distress Neck: supple Cardiovascular: normal rate Respiratory/Chest: lungs clear Abdomen: normal bowel sounds, non tender, soft Extremities: moderate edema Intake and Output 04/18/19 04/19/19 19:00 07:00 Intake Total 360 ml 360 ml Balance 360 ml 360 ml Intake Oral 360 ml 360 ml # Voids 2 Microbiology Date/Time Source Procedure Growth Status 04/16/19 22:12 Nasal Nares MRSA Culture - Final NO METHICILLIN RESISTANT STAPH AUREUS... Complete William Jung MD Apr 19, 2019 15:27
[2019-04-19 15:52] LABS: HEMATOCRIT 19.3 % (42.0-52.0); MEAN CORPUSCULAR VOLUME 96 FL (80-99); PLATELET COUNT 103 K/UL (150-450); RED BLOOD COUNT 2.01 M/UL (4.70-6.10); RED CELL DISTRIBUTION WIDTH 13.3 % (11.6-14.8); WHITE BLOOD COUNT 5.1 K/UL (4.8-10.8)
[2019-04-19 16:00] VITALS: BP 161/72
[2019-04-19 16:01] LABS: HEMOGLOBIN 6.5 G/DL (14.2-18.0)
[2019-04-19 16:04] LABS: ALANINE AMINOTRANSFERASE 23 U/L (12-78); ALBUMIN 2.9 G/DL (3.4-5.0); ALBUMIN/GLOBULIN RATIO 0.8 (1.0-2.7); ALKALINE PHOSPHATASE 132 U/L (46-116); ANION GAP 12 mmol/L (5-15); ASPARTATE AMINO TRANSFERASE 14 U/L (15-37); BILIRUBIN,TOTAL 0.6 MG/DL (0.2-1.0); BLOOD UREA NITROGEN 44 mg/dL (7-18); CALCIUM 7.9 MG/DL (8.5-10.1); CARBON DIOXIDE 28 MMOL/L (21-32); CHLORIDE 99 MMOL/L (98-107); CREATININE 5.2 MG/DL (0.55-1.30); PHOSPHORUS 3.9 MG/DL (2.5-4.9); POTASSIUM 4.5 MMOL/L (3.5-5.1); SODIUM 139 MMOL/L (136-145)
--- NOTE | 2019-04-19 17:37 | Cardiology Report ---
APPROVED REPORT EXAM: Two-dimensional and M-mode echocardiogram with Doppler and color Doppler. INDICATION Chest Pain M-Mode DIMENSIONS IVSd1.2 (0.7-1.1cm)Left Atrium (MM)5.2 (1.6-4.0cm) LVDd5.2 (3.5-5.6cm)Aortic Root3.7 (2.0-3.7cm) PWd1.2 (0.7-1.1cm)Aortic Cusp Exc.1.7 (1.5-2.0cm) LVDs3.7 (2.5-4.0cm) PWs2.0 cm Normal left ventricular chamber size, systolic function and wall motion. Left ventricular ejection fraction estimated to be 55-60 %. Borderline left ventricular hypertrophy. Trivial posterior pericardial effusion. Moderate left atrial enlargement. Mild right atrial enlargement. Right ventricular chamber size is within normal limits. Moderate focal aortic valve thickening with mild decresed cusp excursion. Thickened mitral valve leaflets with normal excursion. Mitral annulus and aortic root calcification. Normal pulmonic valve structure. Normal tricuspid valve structure. IVC dilated at 2.3 cm and slight physiologic collapse suggestive of increased RA pressure. A color flow and spectral Doppler study was performed and revealed: Peak aortic valve gradient of 13 mm Hg and a mean of 7 mmHg. Mild mitral regurgitation. Mitral inflow indicate normal left ventricular diastolic function. Mild tricuspid regurgitation. Tricuspid systolic velocities suggests peak right ventricular systolic pressure of 54 mmHg, consistent with moderate pulmonary hypertension. Pulmonic regurgitation present.
--- NOTE | 2019-04-19 18:05 | NUR ---
NURSE NOTES: Doctor ordered 1 unit PRBC. doctor Arline will sign blood consent tomorrow since this is an emergency tranfusion. Pt does not have any family members to consent for transfusion and pt is only alert and oriented to his name.
--- NOTE | 2019-04-19 19:35 | NUR ---
NURSE NOTES: Received patient from TERESA Schrader. Patient sitting in bed comfortably. No signs of distress or pain noted. Patient able to make needs known, Macedonian speaking. IV site checked, intact and patent, no signs of redness, bleeding, or infiltration. Bed in lowest position, siderails up x2, and call light within reach. Will continue with plan of care.
[2019-04-19 20:00] VITALS: BP 164/81
--- NOTE | 2019-04-19 20:22 | NUR ---
HAND-OFF: Report given to Veronica/TERESA pt in stable condition about to received 1 unit of blood, doctor Arline will sign consent tomorrow since this is an emergency tranfusion. Pt does not have any family members to consent for transfusion and pt is only alert and oriented to his name.
[2019-04-19] MEDS: Tamsulosin 0.4mg cap ORAL SCH (20:49)
--- NOTE | 2019-04-19 21:15 | Consultation ---
DATE OF CONSULTATION: 04/18/2019 CARDIOLOGY CONSULTATION CONSULTING PHYSICIAN: William Jung M.D. REFERRING PHYSICIAN: Reyes Gonzalez M.D. REASON FOR REFERRAL: Abnormal cardiac enzymes. HISTORY OF PRESENT ILLNESS: This is a very poor historian middle-aged gentleman who speaks Tamaz[place] only. Information was obtained from the review of the chart, review of the records from prior admissions and prior hospitalizations, and facility reports. The patient on questioning is not aware why he is coming to the hospital and/or where he is at. He denies any chest pain. Denies any shortness of breath. Denies any dizziness. Denies any PND. Denies any palpitation for whatever it is worth; however, the chart indicates that the patient has been admitted to the hospital because of bleeding from AV fistula. Apparently got dialysis earlier that day, pulled off his pressure dressing and was brought to the emergency room. Lot of bleeding was noted to be present by the EMS services, they applied pressure dressing. The patient was apparently nonverbal at baseline, unable to provide additional history. The patient was brought to the emergency room at [facility] and subsequently has been admitted to the hospital. This consult requested because of abnormal cardiac enzymes. Cardiac enzymes will be drawn as a matter of routine not because the patient has any particular symptoms. The patient records indicate that he has history of diabetes, hypertension, chronic kidney disease on hemodialysis. He has got cognitive dysfunction and dementia as well. The chart indicates the patient is not ambulatory. His prior admissions here have been back in October of this year at which time he was referred for hyperkalemia because of refusing to take the dialysis and he was having bleeding from PermCath under with a drop in his hemoglobin down to 6.5 with a minimally abnormal troponin at that time. He basically has encephalopathy, pulmonary edema, anemia, ended up removing tunneled dialysis catheter. He was having some hypothyroidism as well. He apparently was seen by psychiatrist at that time. Nevertheless, he has no known drug allergies. SOCIAL HISTORY: He is a resident of a facility. As mentioned, the chart indicates the patient is nonambulatory as mentioned above. He is not known to be smoking or drinking alcoholic beverages or use drugs. REVIEW OF SYSTEMS: Really unable to obtain because of the patient's confused status and unable to provide information. Cardiac review of systems as mentioned in the HPI. PHYSICAL EXAMINATION: GENERAL: Shows to be an middle-aged gentleman, in no respiratory distress. He is not communicating verbally. NECK: Supple. LUNGS: Appear to be clear to auscultation anteriorly. CARDIAC: Regular rate and rhythm. No heaves or thrills. ABDOMEN: Soft, nontender. Positive bowel sounds. EXTREMITIES: A 1 to 2+ pitting edema of the lower extremities. LABORATORY AND DIAGNOSTIC DATA: White count of 4.4, hemoglobin 7.4, and platelet count of 91,000. Sodium is 137, potassium 4.8 chloride 99, bicarb 33, BUN of 48, creatinine 6.2, and glucose of 111. Calcium is 7.9, magnesium 2.1, phosphorus of 4.8, iron of 88, TIBC of 184 with 48% saturation, ferritin of 854. Bilirubin was 0.7, alkaline phosphate is 128. Troponin was 0.05 again 0.919. ProBNP greater than 35,000. TSH is 10.277. Folic acid of 8.5. Vitamin B12 of 915. Coags INR 1.1, PTT of 22. No x-rays were performed. Electrocardiogram shows sinus rhythm, leftward axis, nonspecific T-wave abnormalities and unfortunately all EKG cannot be located. ASSESSMENT AND PLAN: 1. Abnormal cardiac enzymes likely secondary to demand and renal insufficiency. 2. End-stage renal disease, on hemodialysis. 3. Anemia. 4. Thrombocytopenia. 5. Dementia. 6. Diabetes mellitus. 7. Bleeding from the fistula Dr. Gonzalez, this patient was seen in cardiac consultation. This patient has a history of dementia and has had several hospitalizations related to bleeding from fistula or dialysis catheter site because of pulling out his dialysis. Certainly it is possible and likely that his cardiac enzymes secondary to end-stage renal disease and demand related secondary to his anemia. He will be observed overnight. EKG will be ordered for tomorrow morning and he will have repeat cardiac enzymes. An echocardiogram will be ordered. He is already unfortunately refused telemetry unit. I am not sure he is going to comply with all the other recommendations that have been given for the testing. If he does, we will follow up on those testing and further recommendations although I doubt that he has been candidate for anything in particular and will provide further recommendations. William Jung M.D. DR: Erich JOB#: [id number] CC:
[2019-04-20] VITALS: BP 160/80
[2019-04-20] MEDS: HydrALAZINE 25mg tab ORAL SCH (06:00)
--- NOTE | 2019-04-20 07:30 | NUR ---
HAND-OFF: Report given to TERESA Schrader. Plan of care endorsed.
--- NOTE | 2019-04-20 08:02 | NUR ---
NURSE NOTES: pt at the edge of the bed having breakfast. Refusing labs and cardiac monitoring and vital signs. Pt is also saying he is going to pull out his IV. I explained to pt in english that he needs his IV but he is still determined to pull it off. No respiratory distress noted at this time. Call light next to pt. Bed is in lowest position. Will continue to monitor pt.
[2019-04-20 08:31] VITALS: BP 169/80
[2019-04-20 08:51] LABS: HEMOGLOBIN 7.6 G/DL (14.2-18.0); MEAN CORPUSCULAR VOLUME 94 FL (80-99); PLATELET COUNT 114 K/UL (150-450); RED BLOOD COUNT 2.45 M/UL (4.70-6.10); RED CELL DISTRIBUTION WIDTH 16.5 % (11.6-14.8); WHITE BLOOD COUNT 5.4 K/UL (4.8-10.8)
[2019-04-20] MEDS ORDERED: Lisinopril 20mg tab ORAL SCH (09:00)
[2019-04-20] MEDS: Aspirin Baby 81mg ORAL SCH (09:21)
[2019-04-20] MEDS: Renvela 800mg Pkt ORAL SCH ×2 (09:21→14:27)
[2019-04-20] MEDS: Imdur 30mg tab ORAL SCH (09:21)
[2019-04-20] MEDS: Metoprolol Tartrate 12.5mg TAB ORAL SCH (09:22)
[2019-04-20] MEDS: Docusate 100mg cap ORAL SCH ×2 (09:22→14:27)
[2019-04-20] MEDS ORDERED: Doxazosin 1mg Tab ORAL SCH (09:45)
--- NOTE | 2019-04-20 09:45 | Nephrology Progress Note ---
Assessment/Plan Problem List: (1) ESRD (end stage renal disease) on dialysis (2) Anemia (3) Dementia (4) Bleeding from dialysis shunt (5) Hypothyroid (6) Elevated troponin Assessment 1. Bleeding from the dialysis shunt, which is now stopped. 2. End-stage renal disease. 3. Anemia related to end-stage renal disease. 4. Dementia. 5. Hypertension. 6. Diabetes mellitus. 7. Elevated troponin Plan HD 04/19 keep BP in check transfused one unit troponin lowering cardio eval note DC to assisted living- continue OP HD Subjective ROS Limited/Unobtainable: No Subjective denies chest painor sob Objective Objective Last 24 Hour Vital Signs Date Time Temp Pulse Resp B/P (MAP) Pulse Ox O2 Delivery O2 Flow Rate FiO2 04/20/19 09:22 169/80 04/20/19 09:22 64 169/80 04/20/19 09:22 64 169/80 04/20/19 09:21 169/80 04/20/19 08:31 96.8 64 20 169/80 (109) 96 04/20/19 00:00 97.6 62 18 160/80 (106) 100 04/19/19 21:14 164/81 04/19/19 21:00 Room Air 04/19/19 20:48 60 170/82 04/19/19 20:00 98.0 65 16 164/81 (108) 100 04/19/19 16:00 97.7 62 20 161/72 (101) 98 04/19/19 12:00 97.7 62 20 161/72 (101) 98 04/19/19 10:39 64 154/79 04/19/19 10:39 64 154/79 04/19/19 10:38 154/79 04/19/19 10:38 154/79 04/19/19 10:27 97.5 64 18 154/79 (104) 96 Intake and Output 04/19/19 04/20/19 19:00 07:00 Intake Total 560 ml 480 ml Balance 560 ml 480 ml Intake Oral 560 ml 480 ml # Voids 3 # Bowel Movements 2 Laboratory Tests 04/19/19 14:45: White Blood Count 5.1, Red Blood Count 2.01L, Hemoglobin 6.5*L, Hematocrit 19.3L , Mean Corpuscular Volume 96, Mean Corpuscular Hemoglobin 32.6H, Mean Corpuscular Hemoglobin Concent 33.9, Red Cell Distribution Width 13.3, Platelet Count 103L, Mean Platelet Volume 7.2, Neutrophils (%) (Auto) , Lymphocytes (%) ( Auto) , Monocytes (%) (Auto) , Eosinophils (%) (Auto) , Basophils (%) (Auto) , Differential Total Cells Counted 100, Neutrophils % (Manual) 69, Lymphocytes % ( Manual) 15L, Monocytes % (Manual) 13H, Eosinophils % (Manual) 3, Basophils % ( Manual) 0, Band Neutrophils 0, Platelet Estimate DecreasedL, Platelet Morphology Normal, Hypochromasia 2+, Anisocytosis 1+, Microcyto Current Medications Medications (Trade) Dose Ordered Sig/Cynthia Route PRN Reason Start Time Stop Time Status Last Admin Dose Admin Acetaminophen (Tylenol) 650 mg Q4H PRN ORAL Mild Pain/Temp > 100.5 04/17/19 11:15 05/17/19 11:14 04/19/19 12:09 Amlodipine Besylate (Norvasc) 10 mg DAILY ORAL 04/17/19 12:00 05/17/19 11:59 04/20/19 09:22 Aspirin (ASA) 81 mg DAILY ORAL 04/17/19 12:00 05/17/19 11:59 04/20/19 09:21 Docusate Sodium (Colace) 100 mg THREE TIMES A DAY ORAL 04/17/19 13:00 05/17/19 12:59 04/20/19 09:22 Hydralazine HCl (Apresoline) 25 mg Q4H PRN ORAL bp over 160 syst 04/17/19 11:15 05/17/19 11:14 Hydralazine HCl (Apresoline) 25 mg Q8HR ORAL 04/19/19 14:00 05/18/19 13:59 04/19/19 21:14 Isosorbide Mononitrate (Imdur) 30 mg DAILY ORAL 04/18/19 12:00 05/18/19 11:59 04/20/19 09:21 Lisinopril (Prinivil) 20 mg DAILY ORAL 04/20/19 09:00 05/18/19 11:59 04/20/19 09:22 Metoprolol Tartrate (Lopressor) 12.5 mg Q12HR ORAL 04/17/19 21:00 05/17/19 20:59 04/20/19 09:22 Nitroglycerin (Ntg) 1 patch Q24H TDERMAL 04/17/19 12:00 05/17/19 11:59 04/18/19 12:38 Pantoprazole (Protonix) 40 mg EVERY 12 HOURS ORAL 04/17/19 21:00 05/17/19 20:59 04/20/19 09:21 Quetiapine Fumarate (SEROquel) 50 mg Q8HR ORAL 04/19/19 14:00 05/17/19 13:59 04/19/19 21:14 Sevelamer Carbonate (Renvela) 800 mg THREE TIMES A DAY ORAL 04/17/19 13:00 05/17/19 12:59 04/20/19 09:21 Tamsulosin HCl (Flomax) 0.4 mg BEDTIME ORAL 04/17/19 21:00 05/17/19 20:59 04/19/19 20:49 sis Occasional, Sodium Level 139, Potassium Level 4.5, Chloride Level 99, Carbon Dioxide Level 28, Anion Gap 12, Blood Urea Nitrogen 44H, Creatinine 5.2H , Estimat Glomerular Filtration Rate 11.2, Glucose Level 89, Calcium Level 7.9L , Phosphorus Level 3.9, Total Bilirubin 0.6, Aspartate Amino Transf (AST/SGOT) 14L, Alanine Aminotransferase (ALT/SGPT) 23, Alkaline Phosphatase 132H, Troponin I 0.518H, Total Protein 6.6, Albumin 2.9L, Globulin 3.7, Albumin/ Globulin Ratio 0.8L, Hepatitis B Surface Antigen Negative 04/20/19 08:35: White Blood Count 5.4, Red Blood Count 2.45L, Hemoglobin 7.6L, Hematocrit 23.0L , Mean Corpuscular Volume 94, Mean Corpuscular Hemoglobin 30.9, Mean Corpuscular Hemoglobin Concent 33.0, Red Cell Distribution Width 16.5H, Platelet Count 114L, Mean Platelet Volume 7.4, Neutrophils (%) (Auto) , Lymphocytes (%) (Auto) , Monocytes (%) (Auto) , Eosinophils (%) (Auto) , Basophils (%) (Auto) , Neutrophils % (Manual) [Pending], Lymphocytes % (Manual) [Pending], Platelet Estimate [Pending], Platelet Morphology [Pending] Height (Feet): 5 Height (Inches): 9.00 Weight (Pounds): 202 General Appearance: no apparent distress, other - anxious to go home Cardiovascular: normal rate Respiratory/Chest: lungs clear Abdomen: soft Objective no change Reyes Gonzalez MD Apr 20, 2019 09:45
[2019-04-20] MEDS ORDERED: PRINIVIL20 MG ORAL (09:48)
[2019-04-20] MEDS ORDERED: COLACE100 MG ORAL (09:48)
[2019-04-20] MEDS ORDERED: ASPIRIN81 MG ORAL (09:48)
[2019-04-20] MEDS ORDERED: FLOMAX0.4 MG ORAL (09:48)
[2019-04-20] MEDS ORDERED: ISOSORBIDE MONO30 M1 ORAL (09:48)
--- NOTE | 2019-04-20 09:49 | Discharge Instructions ---
Discharge Instructions Discharge Instructions Follow up with: PMD and OP dialysis Diet: renal (80g protein, 2GM) For Congestive Heart Failure Reminder Report to your physician any weight gain of 5 pounds or more in one week. Reyes Gonzalez MD Apr 20, 2019 09:49
--- NOTE | 2019-04-20 10:42 | NUR ---
*-* INSURANCE *-* ALL AVAILABLE CLINICALS HAVE BEEN FAXED TO: [facility] [employer] P- [phone] f- [phone]...REVIEW/CLINICAL Addendum: 04/20/19 at 1449 by LORETTA FERRELL S/W [facility] SHE STATED NO MEDIA CLERK BUT CLINICALS HAVE BEEN RECEIVED.
[2019-04-20] MEDS: Nitroglycerin Patch 0.4mg TDERMAL SCH (11:13)
[2019-04-20 11:17] VITALS: BP 146/75
[2019-04-20] MEDS ORDERED: HydrALAZINE 50mg tab ORAL SCH (14:00)
--- NOTE | 2019-04-20 14:26 | Surgery Progress Note ---
Surgery Progress Note Subjective Symptoms: improved, pain absent, tolerating diet, voiding well, passing flatus Additional Comments transfusion with HD stable comfortable no complaints Objective Last 24 Hour Vital Signs Date Time Temp Pulse Resp B/P (MAP) Pulse Ox O2 Delivery O2 Flow Rate FiO2 04/20/19 11:17 62 146/75 (98) 04/20/19 11:13 169/80 04/20/19 10:24 96.8 04/20/19 09:22 169/80 04/20/19 09:22 64 169/80 04/20/19 09:22 64 169/80 04/20/19 09:21 169/80 04/20/19 09:00 Room Air 04/20/19 08:31 96.8 64 20 169/80 (109) 96 04/20/19 00:00 97.6 62 18 160/80 (106) 100 04/19/19 21:14 164/81 04/19/19 21:00 Room Air 04/19/19 20:48 60 170/82 04/19/19 20:00 98.0 65 16 164/81 (108) 100 04/19/19 16:00 97.7 62 20 161/72 (101) 98 I&O Intake and Output 04/19/19 04/20/19 19:00 07:00 Intake Total 560 ml 480 ml Balance 560 ml 480 ml Intake Oral 560 ml 480 ml # Voids 3 # Bowel Movements 2 Dressing: dry Wound: clean Cardiovascular: RSR Respiratory: clear Abdomen: soft, non-tender, present bowel sounds Extremities: no edema, no tenderness, no cyanosis Laboratory Tests Test 04/19/19 14:45 04/20/19 08:35 White Blood Count 5.1 K/UL (4.8-10.8) 5.4 K/UL (4.8-10.8) Red Blood Count 2.01 M/UL (4.70-6.10) L 2.45 M/UL (4.70-6.10) L Hemoglobin 6.5 G/DL (14.2-18.0) *L 7.6 G/DL (14.2-18.0) L Hematocrit 19.3 % (42.0-52.0) L 23.0 % (42.0-52.0) L Mean Corpuscular Volume 96 FL (80-99) 94 FL (80-99) Mean Corpuscular Hemoglobin 32.6 PG (27.0-31.0) H 30.9 PG (27.0-31.0) Mean Corpuscular Hemoglobin Concent 33.9 G/DL (32.0-36.0) 33.0 G/DL (32.0-36.0) Red Cell Distribution Width 13.3 % (11.6-14.8) 16.5 % (11.6-14.8) H Platelet Count 103 K/UL (150-450) L 114 K/UL (150-450) L Mean Platelet Volume 7.2 FL (6.5-10.1) 7.4 FL (6.5-10.1) Neutrophils (%) (Auto) % (45.0-75.0) % (45.0-75.0) Lymphocytes (%) (Auto) % (20.0-45.0) % (20.0-45.0) Monocytes (%) (Auto) % (1.0-10.0) % (1.0-10.0) Eosinophils (%) (Auto) % (0.0-3.0) % (0.0-3.0) Basophils (%) (Auto) % (0.0-2.0) % (0.0-2.0) Differential Total Cells Counted 100 100 Neutrophils % (Manual) 69 % (45-75) 71 % (45-75) Lymphocytes % (Manual) 15 % (20-45) L 15 % (20-45) L Monocytes % (Manual) 13 % (1-10) H 13 % (1-10) H Eosinophils % (Manual) 3 % (0-3) 1 % (0-3) Basophils % (Manual) 0 % (0-2) 0 % (0-2) Band Neutrophils 0 % (0-8) 0 % (0-8) Platelet Estimate Decreased L Decreased L Platelet Morphology Normal Normal Hypochromasia 2+ Anisocytosis 1+ 1+ Microcytosis Occasional Sodium Level 139 MMOL/L (136-145) Potassium Level 4.5 MMOL/L (3.5-5.1) Chloride Level 99 MMOL/L (98-107) Carbon Dioxide Level 28 MMOL/L (21-32) Anion Gap 12 mmol/L (5-15) Blood Urea Nitrogen 44 mg/dL (7-18) H Creatinine 5.2 MG/DL (0.55-1.30) H Estimat Glomerular Filtration Rate 11.2 mL/min (>60) Glucose Level 89 MG/DL (74-106) Calcium Level 7.9 MG/DL (8.5-10.1) L Phosphorus Level 3.9 MG/DL (2.5-4.9) Total Bilirubin 0.6 MG/DL (0.2-1.0) Aspartate Amino Transf (AST/SGOT) 14 U/L (15-37) L Alanine Aminotransferase (ALT/SGPT) 23 U/L (12-78) Alkaline Phosphatase 132 U/L (46-116) H Troponin I 0.518 ng/mL (0.000-0.056) Total Protein 6.6 G/DL (6.4-8.2) Albumin 2.9 G/DL (3.4-5.0) L Globulin 3.7 g/dL Albumin/Globulin Ratio 0.8 (1.0-2.7) L Hepatitis B Surface Antigen Negative (Negative) Plan Problems: (1) Bleeding from dialysis shunt Assessment & Plan: This is a 63-year-old male with bleeding from left forearm dialysis shunt after dialysis this weekend. Fortunately with nonoperative conservative management hemostasis obtained with gentle pressure and Surgicel. Evaluated on 2 separate occasions including yesterday morning and today and hemostasis continues. We will plan for dialysis as per nephrology. Follow-up with primary vascular surgeon as outpatient. Thank you for allowing me to participate in patient's care. Okay for discharge planning from surgical standpoint Outpatient follow-up Monitor for bleeding after each dialysis labs noted Thank you for allowing me to participate in patient's care Nolberto Quinones Apr 20, 2019 14:26
[2019-04-20 14:29] VITALS: BP 146/75
--- NOTE | 2019-04-20 16:19 | NUR ---
NURSE NOTES: pt. DC via gurney in stable condition. MRSA swabs were done. IV was discontinued before DC, IV site covered with 4x4, site not bleeding. quality assurance monitor body taken off a while back pt refused to use it, no signs of cardiac or respiratory distress at this time. Belonging sheet was unable to be signed by pt. Pt is only alert x1. DC instructions were reviewed with pt and were given to [facility] to take with him to [facility]. Pt to resume out of patient dialysis upon DC with [facility] tel [phone]. dialysis days ar - chair time is 1230 / Tracy.
[2019-04-20] MEDS ORDERED: Tubing IV Blood Pump IV ONE (16:23)
[2019-04-20] MEDS ORDERED: NS 275ml ONE (16:23)
--- NOTE | 2019-04-21 10:32 | Discharge Summary ---
Discharge Summary Discharge Summary _ DATE OF ADMISSION: 04/16/2019 DATE OF DISCHARGE: 04/20/2019 DISCHARGED BY: Dr. Gonzalez REASON FOR ADMISSION: 63 years old male with past medical history of end-stage renal disease, on hemodialysis, hypertension, diabetes mellitus, dementia, was brought from assisted living for persistent bleeding from AV fistula. Patient apparently had hemodialysis the day prior to presentation to ED. Staff in assisted living he noted bleeding from the fistula in the left forearm , and patient subsequently was sent to emergency department for further evaluation and management. Laboratory work-up revealed WBC 3.7, hemoglobin 8.8, hematocrit 26.5, platelet count 103. INR 1.2. Troponin 0.058. pro BNP>35,000 BUN 21, creatinine 3.9. Glucose 200. Patient subsequently admitted to telemetry floor for further management . CONSULTANTS: fashion marketer Dr. Jung surgery Dr. Quinones [facility] COURSE: Patient admitted to telemetry floor. Hemostasis was obtained with nonoperative conservative management with gentle pressure and Surgicel. Hemostasis continued. Echocardiogram revealed preserved ejection fraction 55 to 60% with borderline left ventricular hypertrophy. Right ventricular systolic pressure of 54 consistent with a moderate pulmonary hypertension. Brake Drum Molder followed. Serial troponin were trending . Pattern of troponin elevation was not suggestive of myocardial infarction. Per fashion marketer , abnormal troponin were likely related to demand and renal insufficiency. Hemodialysis provided with close monitoring of volumes, renal parameters and electrolytes. Patient was able to tolerate dialysis and telemetry. Blood pressure was managed with multiply antihypertensive medications, stabilized. Antiplatelet therapy with aspirin continued. Patient for Patient required transfusion while in the hospital for hemoglobin 6.5 and hematocrit 19.3. Patient received transfusion with 1 unit of packed red blood cells; after transfusion hemoglobin 7.6 , hematocrit 23. Platelet count was trending up; 114 upon discharge. WBC up to 5.4. Hepatitis B surface antigen was negative. Venous duplex bilateral lower extremity revealed no evidence of acute DVT. Pulse oximetry was stable on room air. Supportive care provided. Hemoglobin A1c 5.4. Blood sugar remained stable. Patient clinically stabilized and was ready for transfer back to senior care facility for continuation of care FINAL DIAGNOSES: Bleeding from AV fistula - resolved End-stage renal disease, on hemodialysis Abnormal troponin, likely related to demand and renal insufficiency Anemia related to end-stage renal disease Hypertension Diabetes mellitus Dementia Thrombocytopenia DISCHARGE MEDICATIONS: See Medication Reconciliation list. DISCHARGE INSTRUCTIONS: Patient was discharged to assisted living. Follow up with primary care provider in one week. I have been assigned to dictate discharge summary for this account. I was not involved in the patient's management. Quyen Howe NP Apr 21, 2019 10:32
--- NOTE | 2019-04-21 11:48 | NUR ---
*-* INSURANCE *-* DISCHARGE SUMMARY CLINICALS HAVE BEEN FAXED TO: [facility] P- [phone] F- [phone]...REVIEW/CLINICAL
== END 2019-04-20 16:24 | disposition home or self-care (01) | DRG 206 ==
LOC: EDBD 19:27 → EMR 20:10 → EDBEDREQ 22:10 → 2E 22:30 → OBSVTOIN 22:30 → 2E 23:58
PROC: 5A1D70Z Performance of Urinary Filtration, Intermittent, Less than 6 Hours Per Day (ICD-10-PCS; principal; 2019-04-19)
PROC: 30233N1 Transfusion of Nonautologous Red Blood Cells into Peripheral Vein, Percutaneous Approach (ICD-10-PCS; 2019-04-19)
DX: T82.838A Hemorrhage due to vascular prosthetic devices, implants and grafts, initial encounter (principal); Y83.8 Other surgical procedures as the cause of abnormal reaction of the patient, or of later complication, without mention of misadventure at the time of the procedure; N18.6 End stage renal disease; D63.1 Anemia in chronic kidney disease; F03.90 Unspecified dementia, unspecified severity, without behavioral disturbance, psychotic disturbance, mood disturbance, and anxiety; I12.0 Hypertensive chronic kidney disease with stage 5 chronic kidney disease or end stage renal disease; E11.22 Type 2 diabetes mellitus with diabetic chronic kidney disease; D69.6 Thrombocytopenia, unspecified; R74.8 Abnormal levels of other serum enzymes; E03.9 Hypothyroidism, unspecified
CPT/HCPCS: 36415; 80053; 82607; 82728; 82746; 82977; 83036; 83540; 83550; 83735; 83880; 84100; 84443; 84484; 84550; 85007; 85025; 85610; 85730; 86140; 86850; 86900; 86901; 86920; 87081; 87340; 93005; 93306; 93970; 99285; G0378